=== PATIENT | female | born 1965 | race Caucasian/White ===

== ENCOUNTER 2017-03-03 17:11 | Observation (INO) ==
[2017-03-03] MEDS ORDERED: Aspirin 81 MG TAB.CHEW PO ONE (17:23)
--- NOTE | 2017-03-03 17:26 | Emergency Department Note ---
Disposition Clinical Impression: Chest pain Qualifiers: Chest pain type: unspecified Qualified Code(s): R07.9 - Chest pain, unspecified Disposition: Admitted As Inpatient Condition: Good Referrals: Lauernce Pisano CNP [Primary Care Provider] - Forms: ED Satisfaction Letter Time of Disposition: 19:48 Chest Pain HPI - General Chief Complaint: ED Chest Pain Stated Complaint: chest heaviness and epigastric burning Source: patient Limitations: no limitations - History of Present Illness HPI Narrative: Patient presents to the emergency department for evaluation of chest pressure. Symptoms started approximately 1 hour ago while she was having a discussion/ argument with her son. She states that she had pressure in the chest which radiated to the left arm and jaw with associated shortness of breath nausea vomiting diaphoresis and palpitations. She states that she no longer feels "aggravated" the symptoms have persisted. Denies recent travel or prolonged immobilization. Denies lower extremity edema or calf discomfort. She states that she does have a history of CHF, she states that she does not currently have a technical sme secondary to the fact that she missed 3 appointments. She denies migration of the pain. She denies midthoracic back pain. Severity scale (1-10): 4 - Related Data Home Medications Medication Instructions Recorded Confirmed GlipiZIDE [Glucotrol] 5 mg PO DAILY 02/18/15 03/03/17 Perphenazine [Trilafon] 8 mg PO BID 02/18/15 03/03/17 Lisinopril/Hydrochlorothiazide 12.5 each PO DAILY 03/07/15 03/03/17 [Zestoretic 10-12.5 mg Tablet] Simvastatin [Zocor] 40 mg PO HS 03/07/15 03/03/17 CarBAMazepine [Equetro] 200 mg PO BID 07/06/15 03/03/17 Fluticasone/Salmeterol [Advair 1 puff IH BID 09/22/15 03/03/17 500-50 Diskus] Albuterol Sulfate [Ventolin Hfa] 2 puff IH Q6H 10/02/15 03/03/17 Benztropine Mesylate 0.5 mg PO HS 11/16/15 03/03/17 Ipratropium/Albuterol Neb [Duoneb] 3 ml IH Q6HR PRN 11/16/15 03/03/17 carBAMazepine [Tegretol] 200 mg PO BID 12/14/15 03/03/17 ALPRAZolam [Xanax 1 MG Tablet] 5 mg PO BID 03/03/17 03/03/17 Insulin Glargine,Hum.rec.anlog 45 unit SQ HS 03/03/17 03/03/17 [Lantus Solostar] Previous Rx's Medication Instructions Recorded Dicyclomine [Bentyl] 20 mg PO QID PRN #20 capsule 12/28/15 Insulin LISPRO [Humalog Kwikpen 3 unit SQ TID #10 mls 01/28/16 U-100] Allergies Allergy/AdvReac Type Severity Reaction Status Date / Time fish oil Allergy Hives Verified 10/07/15 19:53 quetiapine [From Seroquel] Allergy Hives Verified 10/07/15 19:53 metformin AdvReac Diarrhea Verified 10/07/15 19:53 All systems ED: reviewed and negative except as stated. Review of Systems: As Per HPI Chest Pain PMH - Past Medical History Medical history: Reports: arthritis, asthma, cirrhosis, CHF, COPD, DVT, diabetes , hepatitis, hypertension, other Surgical history: Reports: , hysterectomy, other Psychiatric history: Reports: anxiety, bipolar, depression, PTSD, prior suicide attempt, schizophrenia, previous psychiatric hospitalization FURNITURE REPAIRER history: Reports: no FURNITURE REPAIRER history - Social History Smoking Status: Current every day smoker Alcohol use: Reports: none Drug use: Reports: none Physical Exam - General Limitations: no limitations General appearance: alert, in no apparent distress (Resting comfortably cooperative and interactive and pleasant) - Eye Eye exam: Present: normal appearance, PERRL, EOMI. Absent: scleral icterus - ENT ENT exam: normal exam, normal oropharynx, mucous membranes moist - Respiratory Respiratory exam: Present: normal lung sounds bilaterally - Cardiovascular Cardiovascular exam: Present: regular rate, normal rhythm, normal heart sounds - Abdominal Exam Abdominal exam: Present: soft, Non-Tender. Absent: tenderness, distention, guarding, rebound, rigidity - Extremities Exam Extremities exam: Present: normal inspection, full ROM, other (No pulse asymmetry). Absent: pedal edema, joint swelling, calf tenderness - Expanded Lower Extremity Exam Neurovascular/Tendon exam: Present: normal capillary refill. Absent: pulse deficit, motor deficit, sensory deficit - Neurological Exam Neurological exam: Present: alert, oriented X3 - Psychiatric Psychiatric exam: Present: normal affect, normal mood - Skin Skin exam: Present: warm, dry, intact, normal color Course Vital Signs Pulse Rate 99 03/03/17 17:13 Respiratory Rate 22 03/03/17 17:13 Blood Pressure 95/58 03/03/17 17:13 O2 Sat by Pulse Oximetry 93 03/03/17 17:13 Temperature 98.7 F 03/03/17 19:26 Pulse Rate 82 03/03/17 19:26 Respiratory Rate 20 03/03/17 19:26 Blood Pressure 122/83 03/03/17 19:26 O2 Sat by Pulse Oximetry 95 03/03/17 19:26 Oxygen Delivery Oxygen Delivery Nasal Cannula Chest Pain - MDM Narrative Medical decision making narrative: The 1945: Patient resting comfortably at this time without complaints. Her blood pressure 121/83. Heart rate 78. SPO2 96%. I discussed the case with Dr. Obrien, patient will be admitted for ongoing evaluation and treatment. Consideration was also given to pulmonary embolism and acute aortic pathology. Her symptoms today are not consistent with either of these etiologies therefore they were not further pursued this time. - Lab Data Lab results reviewed: Yes I reviewed the patient's lab results. Result diagrams: 03/03/17 17:27 03/03/17 17:27 Lab Results 03/03/17 03/03/17 03/03/17 Range/Units 17:27 17:27 17:27 WBC 8.7 (4.3-11.1) K/mcL RBC 4.38 (3.82-4.97) M/mcL Hgb 12.7 (11.5-15.4) g/dL Hct 38.4 (35.3-44.9) % MCV 87.7 (83.0-100.0) fL MCH 29.0 (28.0-33.3) pg MCHC 33.1 (31.6-35.5) g/dL RDW 13.8 (11.5-14.5) % Plt Count 236 (140-400) K/mcL MPV 10.1 (9.4-12.4) fL Immature Gran % 0.3 (0-4) % Seg Neutrophils % 59.8 % Lymphocytes % 31.0 % Monocytes % 5.3 % Eosinophils % 3.4 % Basophils % 0.2 % Neutrophils # 5.2 (1.6-8.9) K/mcL Lymphocytes # 2.7 (0.6-4.6) K/mcL Monocytes # 0.5 (0.0-1.3) K/mcL Eosinophils # 0.3 (0.0-0.6) K/mcL Basophils # 0.0 (0.0-0.2) K/mcL PT 11.8 (9.4-12.1) Seconds INR 1.1 APTT 32.6 (26.0-36.0) Seconds Sodium (136-145) mEq/L Potassium (3.5-4.5) mEq/L Chloride (98-109) mEq/L Carbon Dioxide (19-29) mEq/L BUN (7-20) mg/dL Creatinine (0.57-1.11) mg/dL Est GFR ( Amer) (> 60) Est GFR (Non-Af Amer) (> 60) BUN/Creatinine Ratio (6-26) Glucose (70-99) mg/dL Calculated Osmolality (280-300) Calcium (8.6-10.8) mg/dL Total Bilirubin 0.2 (0.2-1.2) mg/dL Direct Bilirubin 0.1 (0.0-0.5) mg/dL Indirect Bilirubin 0.1 (0.0-1.2) mg/dL AST 13 (5-34) Units/L ALT 18 (0-55) Units/L Alkaline Phosphatase 164 H (38-126) Units/L Troponin I (0-0.03) ng/mL Serum Total Protein 6.6 (6.0-8.3) g/dL Albumin 2.8 L (3.5-5.0) g/dL Globulin 3.8 H (2.4-3.5) g/dL Albumin/Globulin Ratio 0.7 L (1.1-2.2) Lipase 31 (8-78) Units/L 03/03/17 03/03/17 03/03/17 Range/Units 17:27 17:27 19:10 WBC (4.3-11.1) K/mcL RBC (3.82-4.97) M/mcL Hgb (11.5-15.4) g/dL Hct (35.3-44.9) % MCV (83.0-100.0) fL MCH (28.0-33.3) pg MCHC (31.6-35.5) g/dL RDW (11.5-14.5) % Plt Count (140-400) K/mcL MPV (9.4-12.4) fL Immature Gran % (0-4) % Seg Neutrophils % % Lymphocytes % % Monocytes % % Eosinophils % % Basophils % % Neutrophils # (1.6-8.9) K/mcL Lymphocytes # (0.6-4.6) K/mcL Monocytes # (0.0-1.3) K/mcL Eosinophils # (0.0-0.6) K/mcL Basophils # (0.0-0.2) K/mcL PT (9.4-12.1) Seconds INR APTT (26.0-36.0) Seconds Sodium 140 (136-145) mEq/L Potassium 3.6 (3.5-4.5) mEq/L Chloride 103 (98-109) mEq/L Carbon Dioxide 23 (19-29) mEq/L BUN 15 (7-20) mg/dL Creatinine 0.86 (0.57-1.11) mg/dL Est GFR ( Amer) > 60 (> 60) Est GFR (Non-Af Amer) > 60 (> 60) BUN/Creatinine Ratio 17 (6-26) Glucose 228 H (70-99) mg/dL Calculated Osmolality 298 (280-300) Calcium 9.0 (8.6-10.8) mg/dL Total Bilirubin (0.2-1.2) mg/dL Direct Bilirubin (0.0-0.5) mg/dL Indirect Bilirubin (0.0-1.2) mg/dL AST (5-34) Units/L ALT (0-55) Units/L Alkaline Phosphatase (38-126) Units/L Troponin I 0.00 0.00 (0-0.03) ng/mL Serum Total Protein (6.0-8.3) g/dL Albumin (3.5-5.0) g/dL Globulin (2.4-3.5) g/dL Albumin/Globulin Ratio (1.1-2.2) Lipase (8-78) Units/L ITS Impressions Chest X-Ray 03/03/17 17:23 IMPRESSION: Limited exam due to technique. No obvious airspace abnormalities. D/ / Wilfredo Escobar MD / Wilfredo Escobar MD Interpreting Provider: Wilfredo Escobar MD - Radiology Data Radiology results reviewed: Yes I reviewed the patient's radiology results. - EKG Data EKG attestation: Yes I reviewed and interpreted this EKG. EKG shows normal: sinus rhythm (Normal sinus rhythm at a rate of 94. Nonspecific ST changes anterior laterally. These ST changes are subtle and present on an EKG from 2016 though they appear to be slightly more pronounced today.)
[2017-03-03 17:37] LABS: Basophils % 0.2 %; Eosinophils # 0.3 K/mcL (0.0-0.6); Eosinophils % 3.4 %; Hematocrit 38.4 % (35.3-44.9); Hemoglobin 12.7 g/dL (11.5-15.4); Immature Granulocytes % 0.3 % (0-4); Lymphocytes # 2.7 K/mcL (0.6-4.6); Mean Corpuscular HGB Conc 33.1 g/dL (31.6-35.5); Mean Corpuscular Volume 87.7 fL (83.0-100.0); Mean Platelet Volume 10.1 fL (9.4-12.4); Monocytes # 0.5 K/mcL (0.0-1.3); Monocytes % 5.3 %; Neutrophils # 5.2 K/mcL (1.6-8.9); Platelet Count 236 K/mcL (140-400); Red Blood Count 4.38 M/mcL (3.82-4.97); Red Cell Distribution Width 13.8 % (11.5-14.5); Segmented Neutrophils % 59.8 %
[2017-03-03 17:44] LABS: INR 1.1; Prothrombin Time 11.8 Seconds (9.4-12.1)
[2017-03-03 17:47] LABS: Activated Partial Thrombo Time 32.6 Seconds (26.0-36.0)
[2017-03-03 17:53] LABS: BUN/Creatinine Ratio 17 (6-26); Blood Urea Nitrogen 15 mg/dL (7-20); Carbon Dioxide 23 mEq/L (19-29); Chloride 103 mEq/L (98-109); Glucose 228 mg/dL (70-99); Osmolality,Calculated 298 (280-300); Potassium 3.6 mEq/L (3.5-4.5); Sodium 140 mEq/L (136-145); eGFR For African Americans > 60 (> 60); eGFR For Non-African Americans > 60 (> 60)
[2017-03-03 17:54] LABS: Albumin 2.8 g/dL (3.5-5.0); Albumin/Globulin Ratio 0.7 (1.1-2.2); Bilirubin,Direct 0.1 mg/dL (0.0-0.5); Bilirubin,Indirect 0.1 mg/dL (0.0-1.2); Bilirubin,Total 0.2 mg/dL (0.2-1.2); Globulin 3.8 g/dL (2.4-3.5); Total Protein 6.6 g/dL (6.0-8.3)
[2017-03-03] MEDS ORDERED: Naloxone 0.4 MG/ML INJ IVP PRN (19:49)
[2017-03-03] MEDS ORDERED: Insulin DETEMIR 100 UNIT/ML per UNIT SQ SCH (21:00)
[2017-03-03] MEDS: Perphenazine 2 MG TABLET PO SCH (22:12)
[2017-03-03] MEDS: carBAMazepine 200 MG TABLET PO SCH (22:13)
[2017-03-03] MEDS ORDERED: Insulin DETEMIR 100 UNIT/ML per UNIT SQ ONE (22:49)
[2017-03-03] MEDS: ALPRAZolam 0.5 MG TABLET PO PRN (23:06)
[2017-03-04] MEDS ORDERED: Ibuprofen 600 MG TABLET PO ONE (04:19)
[2017-03-04 07:29] LABS: Basophils % 0.7 %; Eosinophils # 0.3 K/mcL (0.0-0.6); Eosinophils % 4.8 %; Hematocrit 37.1 % (35.3-44.9); Hemoglobin 11.9 g/dL (11.5-15.4); Immature Granulocytes % 0.3 % (0-4); Lymphocytes # 1.9 K/mcL (0.6-4.6); Lymphocytes % 31.6 %; Mean Corpuscular HGB Conc 32.1 g/dL (31.6-35.5); Mean Corpuscular Hemoglobin 28.5 pg (28.0-33.3); Mean Corpuscular Volume 88.8 fL (83.0-100.0); Mean Platelet Volume 10.1 fL (9.4-12.4); Monocytes # 0.4 K/mcL (0.0-1.3); Monocytes % 6.3 %; Neutrophils # 3.4 K/mcL (1.6-8.9); Platelet Count 192 K/mcL (140-400); Red Blood Count 4.18 M/mcL (3.82-4.97); Red Cell Distribution Width 13.9 % (11.5-14.5); Segmented Neutrophils % 56.3 %
[2017-03-04] MEDS ORDERED: *HR* GlipiZIDE 5 MG TABLET PO SCH (08:00)
[2017-03-04] MEDS: Insulin LISPRO 300 UNITS/3 ML VIAL SQ SCH ×2 (08:45→12:06)
[2017-03-04] MEDS: ALPRAZolam 0.5 MG TABLET PO PRN (08:47)
[2017-03-04] MEDS: carBAMazepine 200 MG TABLET PO SCH (08:48)
[2017-03-04] MEDS: Perphenazine 2 MG TABLET PO SCH (08:49)
[2017-03-04 09:36] LABS: BUN/Creatinine Ratio 22 (6-26); Blood Urea Nitrogen 17 mg/dL (7-20); Carbon Dioxide 28 mEq/L (19-29); Chloride 101 mEq/L (98-109); Chol/HDL Ratio 4.1 (0-4.9); Cholesterol 151 mg/dL (< 200); Glucose 308 mg/dL (70-99); HDL Cholesterol 37 mg/dL (40-59); LDL Cholesterol,Calculated 64 mg/dL (0-99); Magnesium 1.7 mg/dL (1.6-2.6); Osmolality,Calculated 301 (280-300); Phosphorous 4.1 mg/dL (2.3-4.7); Potassium 3.8 mEq/L (3.5-4.5); Sodium 139 mEq/L (136-145); Triglycerides 249 mg/dL (< 150); eGFR For African Americans > 60 (> 60); eGFR For Non-African Americans > 60 (> 60)
[2017-03-04 10:22] VITALS: BP 101/68
--- NOTE | 2017-03-04 11:18 | Internal Med History&Physical ---
Date of Encounter: 03/04/17 Time of Encounter: 10:45 Assessment and Plan (1) Chest pain Current visit: Yes Status: Acute Repeat cardiac enzymes were ordered through emergency room. Qualifiers: Chest pain type: unspecified Qualified Code(s): R07.9 - Chest pain, unspecified Internal Medicine - H&P: HPI Chief complaint: Chest pressure Admitted From: Home Plans for Post Hospital Care: Home History of present illness: Ms. Wood is a 52 year old female came to the emergency room stating she did develop pressure in her chest after having a disagreement with her son. It did not resolve she came to the emergency room. She was evaluated and admitted to [facility] for ongoing care needs. She states she does not get similar discomfort on walking. Her cardiovascular history is significant for hypertension but she denies MO or heart failure. She claims showed a heart catheterization approximately 2011 which was unremarkable and did not require further intervention. She denies DVT or pulmonary embolus. She states she is pain-free at this time and feels stable for discharge home. Past Med Surg Social Fam HX - Past Medical History Medical history: arthritis, asthma, cirrhosis, CHF, COPD, DVT, diabetes, hepatitis, hypertension, other Psychiatric history: anxiety, bipolar, depression, PTSD, prior suicide attempt, schizophrenia, previous psychiatric hospitalization - Past Surgical History Surgical History: , hysterectomy, other - Social History Smoking Status: Current every day smoker Packs per day: 3 Smokeless Tobacco Status: No Alcohol use: none Drug use: none Internal Medicine - H&P: Meds GlipiZIDE [Glucotrol] 5 mg PO DAILY 02/18/15 [History] Perphenazine [Trilafon] 8 mg PO BID 02/18/15 [History] Lisinopril/Hydrochlorothiazide [Zestoretic 10-12.5 mg Tablet] 12.5 each PO DAILY 03/07/15 [History] Simvastatin [Zocor] 40 mg PO HS 03/07/15 [History] CarBAMazepine [Equetro] 200 mg PO BID 07/06/15 [History] Fluticasone/Salmeterol [Advair 500-50 Diskus] 1 puff IH BID 09/22/15 [History] Albuterol Sulfate [Ventolin Hfa] 2 puff IH Q6H 10/02/15 [History] Benztropine Mesylate 0.5 mg PO HS 11/16/15 [History] Ipratropium/Albuterol Neb [Duoneb] 3 ml IH Q6HR PRN 11/16/15 [History] carBAMazepine [Tegretol] 200 mg PO BID 12/14/15 [History] Dicyclomine [Bentyl] 20 mg PO QID PRN #20 capsule 12/28/15 [Rx] Insulin LISPRO [Humalog Kwikpen U-100] 3 unit SQ TID #10 mls 01/28/16 [Rx] ALPRAZolam [Xanax 1 MG Tablet] 5 mg PO BID 03/03/17 [History] Insulin Glargine,Hum.rec.anlog [Lantus Solostar] 45 unit SQ HS 03/03/17 [History ] 3 Allergy/AdvReac Type Severity Reaction Status Date / Time fish oil Allergy Hives Verified 10/07/15 19:53 quetiapine [From Seroquel] Allergy Hives Verified 10/07/15 19:53 metformin AdvReac Diarrhea Verified 10/07/15 19:53 All Systems PM: A 10-system review of systems was performed and is negative for pertinent findings except as documented above in the HPI. Review of systems: Gen.: Her weight has increased from 138.091 kg on 03/03/2015 to 146.964 kg on admission now. Cardiovascular: As per history of present illness Respiratory: She has smoked since age 11 a total of 32 years. She smoked up to 4 packs per day at times. She has not had PFTs but does have home oxygen which she uses occasionally. She has been diagnosed with VIOLET and was prescribed CPAP. She reports her machine is broken at present time. GI: She has been diagnosed with hepatitis B and hepatitis C. She has cirrhosis secondary to hepatitis. She denies disorders of her exocrine pancreas or gallbladder : She denies hematuria dysuria or kidney stones Neurologic: She denies large distribution strokes or seizures. Endocrine: She was diagnosed with DM 2 approximately 1999. She has hyperlipidemia but no known thyroid disease Hematology/oncology: She denies blood disorders cancers or anemia Psychiatric: She has anxiety, schizoaffective disorder, bipolar disorder, MRDD ( mild), and PTSD Musk skeletal: She has DJD but no known gout or osteoporosis - Constitutional Vitals: Temp Pulse Resp BP Pulse Ox 97.7 F 77 18 101/68 95 03/04/17 10:18 03/04/17 10:18 03/04/17 10:18 03/04/17 10:18 03/04/17 10:18 Exam: Gen.: She is a well-developed obese female who appears in no acute distress at present time HEENT: Head is atraumatic and normocephalic. Eyes: EOMI. There is no scleral icterus. Mouth: Mucosa is moist. Neck: Supple and nontender. There is no thyromegaly or adenopathy noted. Heart: Regular without murmurs gallops or ectopics Lungs: No wheezes or crackles are heard. Chest: She is tender in her costosternal joints to compression but states "that is not the pain". Abdomen: Soft and nontender. Exam is limited because she is in the seated position. Extremities: There is no cyanosis edema or clubbing noted. Dorsalis pedis and posterior tibial pulses are trace to 1+ palpable bilaterally. Her feet are warm to touch. Neurologic: Mental status: She is talkative and a good historian. Cranial nerves: Smile is symmetric. Forehead wrinkles bilaterally. Tongue protrudes midline. EOMI. Motor: There is no pronator drift. Cerebellar: Finger to nose is intact bilaterally. Skin: Warm and dry Internal Med - H&P Results - Labs CBC & Chem 7: 03/04/17 07:20 03/04/17 07:20 Labs: Short CBC 03/04/17 Range/Units 07:20 WBC 6.1 (4.3-11.1) K/mcL Hgb 11.9 (11.5-15.4) g/dL Hct 37.1 (35.3-44.9) % Plt Count 192 (140-400) K/mcL Neutrophils # 3.4 (1.6-8.9) K/mcL BMP 03/04/17 07:20 Sodium 139 Potassium 3.8 Chloride 101 Carbon Dioxide 28 BUN 17 Creatinine 0.79 Glucose 308 H Calcium 9.0 Cardiac Enzymes 03/04/17 03/04/17 Range/Units 01:30 07:20 Troponin I 0.00 0.00 (0-0.03) ng/mL
--- NOTE | 2017-03-04 11:30 | Discharge Summary ---
Date of Encounter: 03/04/17 Time of Encounter: 10:45 - Discharge Diagnosis (1) Chest pain Priority: Primary Status: Resolved Qualifiers: Chest pain type: unspecified Qualified Code(s): R07.9 - Chest pain, unspecified - Discharge Medications Home Medications: GlipiZIDE [Glucotrol] 5 mg PO DAILY 02/18/15 [History] Perphenazine [Trilafon] 8 mg PO BID 02/18/15 [History] Lisinopril/Hydrochlorothiazide [Zestoretic 10-12.5 mg Tablet] 12.5 each PO DAILY 03/07/15 [History] Simvastatin [Zocor] 40 mg PO HS 03/07/15 [History] CarBAMazepine [Equetro] 200 mg PO BID 07/06/15 [History] Fluticasone/Salmeterol [Advair 500-50 Diskus] 1 puff IH BID 09/22/15 [History] Albuterol Sulfate [Ventolin Hfa] 2 puff IH Q6H 10/02/15 [History] Benztropine Mesylate 0.5 mg PO HS 11/16/15 [History] Ipratropium/Albuterol Neb [Duoneb] 3 ml IH Q6HR PRN 11/16/15 [History] carBAMazepine [Tegretol] 200 mg PO BID 12/14/15 [History] Dicyclomine [Bentyl] 20 mg PO QID PRN #20 capsule 12/28/15 [Rx] Insulin LISPRO [Humalog Kwikpen U-100] 3 unit SQ TID #10 mls 01/28/16 [Rx] ALPRAZolam [Xanax 1 MG Tablet] 5 mg PO BID 03/03/17 [History] Insulin Glargine,Hum.rec.anlog [Lantus Solostar] 45 unit SQ HS 03/03/17 [History ] Allergies/Adverse Reactions: 3 Allergy/AdvReac Type Severity Reaction Status Date / Time fish oil Allergy Hives Verified 10/07/15 19:53 quetiapine [From Seroquel] Allergy Hives Verified 10/07/15 19:53 metformin AdvReac Diarrhea Verified 10/07/15 19:53 Date of admission: 03/03/17 20:20 Primary care physician: Laurence Pisano CNP - Patient Status Disposition: Home, Self-Care Condition: Good Functional capacity at discharge: independent ambulation Overall status at discharge: patient is progressing back to baseline - Discharge Instructions Follow Up With: Laurence Pisano CNP [Primary Care Provider] - 1 week - Diet and Activity Activity: resume usual activities as tolerated, wear oxygen at night Diet: diabetic diet Hospital course: Ms. Wood is a 52 year old female who came to the emergency room stating she did develop pressure in her chest after having a disagreement with her son. It did not resolve she came to the emergency room. She was evaluated and admitted to [facility] for ongoing care needs. Initial orders were written by the emergency room physician. I saw her on March 04 and performed a history physical and discharge. Repeat cardiac enzymes showed no evidence of myocardial damage. When I saw her she was pain- free and wished to be discharged home which I felt was reasonable. The etiology of the pain was not determined with certainty. It possibly could be due to coronary spasm from stress. She will be given a prescription for Nitrostat for prn use. Her other medications will remain unchanged. She will follow with her PCP within one week. I encouraged her to discontinue smoking and have her PCP coordinate repair of her BiPAP machine so she can use it as prescribed. - Time Spent with Patient Total time spent providing and/or coordinating discharge services: - Constitutional Vitals: Temp Pulse Resp BP Pulse Ox 97.7 F 77 18 101/68 95 03/04/17 10:18 03/04/17 10:18 03/04/17 10:18 03/04/17 10:18 03/04/17 10:18
[2017-03-04] MEDS ORDERED: Insulin DETEMIR 100 UNIT/ML per UNIT SQ SCH (21:00)
--- NOTE | 2017-03-05 08:48 | Electrocardiograph Report ---
[address] [address] Test Date: 2017-03-03 Pat Name: John Wood Department: [id number] Room: [facility] Gender: F Analytical Lab Analyst: Grayson : 1965 Requested By: Sanjeev Rees Order Number: [id number] Reading MD: Mary Flanagan Measurements Intervals [place] Rate: 94 P: 61 CT: 152 QRS: 75 QRSD: 88 T: 53 QT: 349 QTc: 401 Interpretive Statements SINUS RHYTHM POSSIBLE RIGHT VENTRICULAR CONDUCTION DELAY NONSPECIFIC ST & T-WAVE ABNORMALITY Electronically Signed On 03-04-2017 17:39:51 EDT by Mary Flanagan
== END 2017-03-04 12:20 | disposition home or self-care (01) ==
LOC: INPPIK 17:11 → EMEROOPIK 17:11 → INPPIK 20:34
PROVIDERS: ADMIT Emergency Medicine; ATTEND Internal Medicine

== ENCOUNTER 2018-07-06 22:33 | Observation (INO) ==
[2018-07-06] MEDS ORDERED: Ipratropium/Albuterol Neb 3 ML IH ONE (23:03)
[2018-07-06] MEDS ORDERED: methylPREDNISolone 125 MG/2 ML VIAL IVP ONE (23:03)
[2018-07-06 23:34] LABS: Basophils % 0.4 %; Eosinophils # 0.3 K/mcL (0.0-0.6); Eosinophils % 4.4 %; Hematocrit 35.3 % (35.3-44.9); Immature Granulocytes % 0.4 % (0-4); Lymphocytes # 1.4 K/mcL (0.6-4.6); Lymphocytes % 20.4 %; Mean Corpuscular HGB Conc 31.2 g/dL (31.6-35.5); Mean Corpuscular Hemoglobin 25.5 pg (28.0-33.3); Mean Corpuscular Volume 81.9 fL (83.0-100.0); Mean Platelet Volume 9.3 fL (9.4-12.4); Monocytes # 0.4 K/mcL (0.0-1.3); Monocytes % 6.1 %; Neutrophils # 4.8 K/mcL (1.6-8.9); Platelet Count 182 K/mcL (140-400); Red Blood Count 4.31 M/mcL (3.82-4.97); Red Cell Distribution Width 14.3 % (11.5-14.5); Segmented Neutrophils % 68.3 %
--- NOTE | 2018-07-06 23:41 | Emergency Department Note ---
Disposition Clinical Impression: Acute exacerbation of chronic obstructive airways disease, Bronchitis, Hypoxia Disposition: Admitted As Inpatient Condition: Fair Referrals: Bruce Mi CNP [Primary Care Provider] - Forms: ED Satisfaction Letter Time of Disposition: 01:27 SOB HPI - General Chief Complaint: ED Shortness of Breath/Dyspnea Stated Complaint: short of breath Time Seen by Provider: 07/06/18 22:40 Source: patient Mode of arrival: private vehicle Limitations: no limitations Nursing Notes Reviewed: Yes Vital Signs Reviewed: Yes - History of Present Illness Pt Subjective Complaint: shortness of breath Onset (ago): day(s) Context: other (Had an upper respiratory infection about 2 weeks ago.) Severity: moderate Consistency/Duration: constant Improves with: rest Worsens with: exertion Known history of: COPD Associated symptoms: Reports: cough, sputum production. Denies: chest pain, fever Treatment prior to arrival: other (She used her home aerosol) Cough present: Yes Cough Description: Productive Cough Frequency: Intermittent - Related Data Home Medications Medication Instructions Recorded Confirmed Perphenazine [Trilafon] 8 mg PO DAILY 02/18/15 07/06/18 Alprazolam [Xanax] 2 mg PO TID PRN 04/05/17 07/06/18 Insulin ASPART [NovoLOG] 20 unit SQ TIDWM 04/05/17 07/06/18 carBAMazepine [Carbamazepine ER] 200 mg PO TID 04/05/17 07/06/18 Furosemide [Lasix] 40 mg PO DAILY 11/29/17 07/06/18 Simvastatin [Zocor] 40 mg PO HS 11/29/17 07/06/18 glyBURIDE [GlyBURIDE] 5 mg PO QAM 11/29/17 07/06/18 hydrOXYzine pamoate [HydrOXYzine 200 mg PO HS PRN 11/29/17 07/06/18 Pamoate] Benztropine Mesylate 2 mg PO BID 02/13/18 07/06/18 Ipratropium/Albuterol Sulfate 3 ml PO QID 02/13/18 07/06/18 Lantus 70 units SQ BID 02/13/18 07/06/18 Losartan Potassium 1 tab PO DAILY 02/13/18 07/06/18 OXcarbazepine 600 mg PO BID 02/13/18 07/06/18 Omeprazole 20 mg PO DAILY 02/13/18 07/06/18 Vitamin E 400 unit PO DAILY 02/13/18 07/06/18 Oxygen 3 l IH HS 07/06/18 07/06/18 Allergies Allergy/AdvReac Type Severity Reaction Status Date / Time codeine Allergy See Verified 07/06/18 22:48 Comments fish oil Allergy Hives Verified 07/06/18 22:48 quetiapine [From Seroquel] Allergy Hives Verified 07/06/18 22:48 metformin AdvReac Diarrhea Verified 07/06/18 22:48 All systems ED: reviewed and negative except as stated. Constitutional: Denies: fever, chills Eyes: Denies: eye pain, vision change ENT ED: Denies: ear pain, throat pain, congestion Cardiovascular: Reports: dyspnea on exertion. Denies: chest pain, palpitations Respiratory: Reports: cough, dyspnea, wheezes Gastrointestinal: Denies: abdominal pain, nausea, vomiting Musculoskeletal: Reports: back pain, neck pain Integumentary: Reports: rash Past Medical History - Past Medical History Attestation: Yes The following information was validated with the patient. Source: patient, old records reviewed, obtained from family, nursing notes reviewed Medical history: Reports: asthma, CHF, COPD, diabetes, GERD, hepatitis, hyperlipidemia, hypertension, pulmonary embolus, TIA, other Surgical history: Reports: , cholecystectomy, hysterectomy, orthopedic, other, other Psychiatric history: Reports: anxiety, bipolar, depression, PTSD, prior suicide attempt, schizophrenia, previous psychiatric hospitalization RIVETER HELPER history: Reports: no RIVETER HELPER history - Social History Smoking Status: Current every day smoker Smokeless Tobacco Status: No Alcohol use: Reports: none Drug use: Reports: none Physical Exam - General Limitations: no limitations General appearance: alert, obese, other (Cough and tachypnea with some wheezing.) - Head Head exam: atraumatic, normocephalic, normal inspection - Eye Eye exam: Present: normal appearance, PERRL, EOMI. Absent: scleral icterus, conjunctival injection - ENT ENT exam: normal exam, normal oropharynx, mucous membranes moist, normal external ear exam - Neck Neck exam: Present: normal inspection, full ROM, trachea midline. Absent: meningismus - Chest Chest inspection: Present: normal inspection, symmetric chest wall rise. Absent: tenderness - Respiratory Respiratory exam: Present: respiratory distress (Tachypnea), wheezes (Scattered throughout on bilateral lungs) - Cardiovascular Cardiovascular exam: Present: regular rate, normal rhythm, normal heart sounds - Abdominal Exam Abdominal exam: Present: soft, Non-Tender, normal bowel sounds - Extremities Exam Extremities exam: Present: normal inspection. Absent: pedal edema - Neurological Exam Neurological exam: Present: alert, oriented X3 - Psychiatric Psychiatric exam: Present: normal affect, normal mood - Skin Skin exam: Present: warm, dry. Absent: rash Course Course Narrative: Patient presents for shortness of breath and cough is worsening over the past couple days. On exam she is tachypneic and there is some coarse wheezing. I do not hear rales and I do not see peripheral edema. We will check an x-ray and lab workup going. Duo nebs and steroids have been ordered. Disposition will be based on diagnostic results and reevaluation. - Reevaluation(s) Reevaluation #1: Chest x-ray is clear. Lab work is unremarkable except for the ABG which shows some hypoxia and that is after breathing treatments and on oxygen. CO2 and pH are okay. Patient needs to be admitted to the hospital for COPD exacerbation. I have already discussed the case with the hospitalist who is accepted her for admission. Time: 01:25 - Consultations Consultation #1: Dr. Obrien, hospitalist - I discussed case with the hospitalist. He is accepted the patient for admission. Time: 01:26 Vital Signs Temperature 97.4 F L 07/06/18 22:35 Pulse Rate 93 07/06/18 22:35 Respiratory Rate 25 07/06/18 22:35 Blood Pressure 141/94 07/06/18 22:35 O2 Sat by Pulse Oximetry 84 07/06/18 22:35 Temperature 97.4 F L 07/06/18 22:35 Pulse Rate 82 07/07/18 01:16 Respiratory Rate 22 07/07/18 01:16 Blood Pressure 113/66 07/07/18 01:16 O2 Sat by Pulse Oximetry 91 07/07/18 01:16 Oxygen Delivery Oxygen Delivery Nasal Cannula Shortness of Breath/Dyspnea - Medical Records Medical records reviewed: Yes I reviewed the patient's medical records. - Lab Data Lab results reviewed: Yes I reviewed the patient's lab results. Result diagrams: 07/06/18 23:24 07/06/18 23:24 Lab Results 07/06/18 07/06/18 07/06/18 Range/Units 23:24 23:24 23:24 WBC 7.1 (4.3-11.1) K/mcL RBC 4.31 (3.82-4.97) M/mcL Hgb 11.0 L (11.5-15.4) g/dL Hct 35.3 (35.3-44.9) % MCV 81.9 L (83.0-100.0) fL MCH 25.5 L (28.0-33.3) pg MCHC 31.2 L (31.6-35.5) g/dL RDW 14.3 (11.5-14.5) % Plt Count 182 (140-400) K/mcL MPV 9.3 L (9.4-12.4) fL Immature Gran % 0.4 (0-4) % Seg Neutrophils % 68.3 % Lymphocytes % 20.4 % Monocytes % 6.1 % Eosinophils % 4.4 % Basophils % 0.4 % Neutrophils # 4.8 (1.6-8.9) K/mcL Lymphocytes # 1.4 (0.6-4.6) K/mcL Monocytes # 0.4 (0.0-1.3) K/mcL Eosinophils # 0.3 (0.0-0.6) K/mcL Basophils # 0.0 (0.0-0.2) K/mcL Sample Site ABG pH (7.32-7.45) pH Units ABG pCO2 (35-45) mmHg ABG pO2 (85-104) mmHg ABG HCO3 (21-27) mEq/L ABG Total CO2 (20-26) mEq/L ABG O2 Saturation (95-98) % ABG Base Excess (-2 to 3) mEq/L Jose Test O2 Delivery Device Inspired O2 (1-15=lpm [id number]=%) Sodium 143 (136-145) mEq/L Potassium 3.4 L (3.5-5.1) mEq/L Chloride 105 (98-107) mEq/L Carbon Dioxide 31 H (23-29) mEq/L BUN 15 (6-20) mg/dL Creatinine 0.83 (0.60-1.20) mg/dL Est GFR ( Amer) > 60 (> 60) Est GFR (Non-Af Amer) > 60 (> 60) BUN/Creatinine Ratio 18 (6-26) Glucose 297 H (70-105) mg/dL Calculated Osmolality 308 H (280-300) Calcium 8.4 L (8.6-10.3) mg/dL Troponin I < 0.03 (< 0.04) ng/mL B-Natriuretic Peptide 105 H (Less than 100) pg/mL Ethyl Alcohol < 10 (Less than 10) mg/dL 07/07/18 Range/Units 00:50 WBC (4.3-11.1) K/mcL RBC (3.82-4.97) M/mcL Hgb (11.5-15.4) g/dL Hct (35.3-44.9) % MCV (83.0-100.0) fL MCH (28.0-33.3) pg MCHC (31.6-35.5) g/dL RDW (11.5-14.5) % Plt Count (140-400) K/mcL MPV (9.4-12.4) fL Immature Gran % (0-4) % Seg Neutrophils % % Lymphocytes % % Monocytes % % Eosinophils % % Basophils % % Neutrophils # (1.6-8.9) K/mcL Lymphocytes # (0.6-4.6) K/mcL Monocytes # (0.0-1.3) K/mcL Eosinophils # (0.0-0.6) K/mcL Basophils # (0.0-0.2) K/mcL Sample Site L Radial ABG pH 7.36 (7.32-7.45) pH Units ABG pCO2 57 H (35-45) mmHg ABG pO2 68 L (85-104) mmHg ABG HCO3 33 H (21-27) mEq/L ABG Total CO2 34 H (20-26) mEq/L ABG O2 Saturation 92 L (95-98) % ABG Base Excess 6 H (-2 to 3) mEq/L Jose Test Positive O2 Delivery Device Cannula Inspired O2 4.0 (1-15=lpm [id number]=%) Sodium (136-145) mEq/L Potassium (3.5-5.1) mEq/L Chloride (98-107) mEq/L Carbon Dioxide (23-29) mEq/L BUN (6-20) mg/dL Creatinine (0.60-1.20) mg/dL Est GFR ( Amer) (> 60) Est GFR (Non-Af Amer) (> 60) BUN/Creatinine Ratio (6-26) Glucose (70-105) mg/dL Calculated Osmolality (280-300) Calcium (8.6-10.3) mg/dL Troponin I (< 0.04) ng/mL B-Natriuretic Peptide (Less than 100) pg/mL Ethyl Alcohol (Less than 10) mg/dL - Radiology Data Radiology results reviewed: Yes I reviewed the patient's radiology results. - EKG Data EKG attestation: Yes I reviewed and interpreted this EKG. EKG results narrative: Twelve-lead EKG performed at 20 3:15 PM. Ordered, reviewed and interpreted by ED physician shows sinus rhythm at a rate of 84. Normal axis. Good hour progression across precordium. Nonspecific T-wave abnormalities but no obvious acute ischemic changes. Intervals within normal limits.
[2018-07-06 23:53] LABS: BUN/Creatinine Ratio 18 (6-26); Blood Urea Nitrogen 15 mg/dL (6-20); Calcium 8.4 mg/dL (8.6-10.3); Carbon Dioxide 31 mEq/L (23-29); Chloride 105 mEq/L (98-107); Ethanol < 10 mg/dL (Less than 10); Glucose 297 mg/dL (70-105); Osmolality,Calculated 308 (280-300); Potassium 3.4 mEq/L (3.5-5.1); Sodium 143 mEq/L (136-145); eGFR For Non-African Americans > 60 (> 60)
[2018-07-06 23:54] LABS: Troponin I < 0.03 ng/mL (< 0.04)
[2018-07-07 00:54] LABS: ABG Base Excess 6 mEq/L (-2 to 3); ABG HCO3 33 mEq/L (21-27); ABG Oxygen Saturation 92 % (95-98); ABG PCO2 57 mmHg (35-45); ABG PH 7.36 pH Units (7.32-7.45); ABG PO2 68 mmHg (85-104); ABG TCO2 34 mEq/L (20-26)
[2018-07-07] MEDS ORDERED: Azithromycin 500 MG in D5% in Water 250 ML IVPB ONE ×2 (01:29→02:14)
[2018-07-07] MEDS ORDERED: 0.9 % Sodium Chloride 1,000 ML IVC SCH (02:14)
[2018-07-07] MEDS ORDERED: SODIUM CHLORIDE MINI 0.9% IVPB SCH (02:14)
[2018-07-07] MEDS ORDERED: Naloxone 0.4 MG/ML INJ IVP PRN (02:14)
[2018-07-07] MEDS ORDERED: MethylPREDNISolone 40 MG/ML VIAL IVP ONE (02:14)
[2018-07-07] MEDS ORDERED: CEFTRIAXONE IVPB SCH (02:14)
[2018-07-07] MEDS: Ipratropium/Albuterol Neb 3 ML IH SCH ×3 (03:50→11:49)
[2018-07-07] MEDS ORDERED: methylPREDNISolone 125 MG/2 ML VIAL IVP SCH (08:00)
[2018-07-07] MEDS: Insulin LISPRO 300 UNITS/3 ML VIAL SQ SCH ×2 (08:30→11:27)
[2018-07-07] MEDS ORDERED: Insulin DETEMIR 100 UNIT/ML X5UNITS SQ SCH (09:00)
[2018-07-07] MEDS ORDERED: carBAMazepine 200 MG TABLET PO SCH (09:00)
[2018-07-07] MEDS ORDERED: INSULIN GLARGINE SQ SCH (09:00)
[2018-07-07] MEDS ORDERED: Losartan/HCTZ 50-12.5 TABLET PO SCH (09:00)
[2018-07-07] MEDS ORDERED: *HR* GlyBURIDE 5 MG TABLET PO SCH (09:00)
[2018-07-07 11:25] VITALS: BP 126/82
--- NOTE | 2018-07-07 12:15 | Internal Med History&Physical ---
Date of Encounter: 07/07/18 Time of Encounter: 11:45 Assessment and Plan (1) COPD (chronic obstructive pulmonary disease) Current visit: No Status: Chronic She was given Rocephin and Zithromax with Solu-Medrol in emergency room. She states her breathing has significantly improved and she wishes to be discharged home. Qualifiers: COPD type: COPD with acute exacerbation Qualified Code(s): J44.1 - Chronic obstructive pulmonary disease with (acute) exacerbation (2) HTN (hypertension) Current visit: No Status: Chronic Continue Hyzaar Qualifiers: Hypertension type: essential hypertension Qualified Code(s): I10 - Essential (primary) hypertension (3) Hypokalemia Current visit: Yes Status: Acute Likely secondary to Hyzaar and Lasix use. Supplemental potassium will be ordered. Internal Medicine - H&P: HPI Chief complaint: Dyspnea Admitted From: Emergency Dept Plans for Post Hospital Care: Home History of present illness: Ms. Wood is a 53 year old female who came to emergency room stating she had increased dyspnea after lying down in bed last night. She reports she has had a cough for approximately 2 weeks that has not significantly improved. It is generally nonproductive. When her dyspnea did not improve she decided to come to emergency room. She was evaluated and was felt to have exacerbation of COPD. She was admitted to [facility] floor for ongoing care needs. She has smoked since age 11 a total of 33 years. She has smoked up to 4 packs per day. She has not had PFTs but does have home oxygen which she uses occasionally when she feels dyspneic. She has been diagnosed with VIOLET and was prescribed CPAP. She discarded her machine after it malfunctioned and she reports the supplier would not repair it. Past Med Surg Social Fam HX - Past Medical History Medical history: asthma, CHF, COPD, diabetes, GERD, hepatitis, hyperlipidemia, hypertension, pulmonary embolus, TIA, other Additional medical history: Hx of gall stones. SLEEP APNEA. hep c. hep b. GASTRIC ULCER. DVT. GLAUCOMA. HOME O2. DYSPHAGIA Psychiatric history: anxiety, bipolar, depression, PTSD, prior suicide attempt, schizophrenia, previous psychiatric hospitalization - Past Surgical History Surgical History: , cholecystectomy, hysterectomy, orthopedic, other, other Additional surgical history: right foot surgery. partial hysterectomy - Social History Smoking Status: Current every day smoker Packs per day: 2 Smokeless Tobacco Status: No Alcohol use: none Drug use: none - Family History Mother Family Member Ethnicity: Non- Living Status: Hx Family Cardiac Disorders: Yes ([place] x4, CAD) Father Family Member Ethnicity: Non- Living Status: Hx Family Cardiac Disorders: Yes Brother Family Member Ethnicity: Non- Living Status: Hx Family Cardiac Disorders: Yes Hx Family Cancer: Yes (Stomach, Prostate) Hx Family Neurologic Disorders: Yes (Seizures) Sister Family Member Ethnicity: Non- Living Status: Still Living Hx Family Cardiac Disorders: Yes (CAD) Hx Family Cancer: Yes (Uterine) Hx Family GI Disorders: Yes (Polyps in colon) Hx Family Endocrine Disorder: Yes (DM) Internal Medicine - H&P: Meds Perphenazine [Trilafon] 8 mg PO DAILY 02/18/15 [History] Alprazolam [Xanax] 2 mg PO TID PRN 04/05/17 [History] Insulin ASPART [NovoLOG] 20 unit SQ TIDWM 04/05/17 [History] carBAMazepine [Carbamazepine ER] 200 mg PO TID 04/05/17 [History] Furosemide [Lasix] 40 mg PO DAILY 11/29/17 [History] Simvastatin [Zocor] 40 mg PO HS 11/29/17 [History] glyBURIDE [GlyBURIDE] 5 mg PO QAM 11/29/17 [History] hydrOXYzine pamoate [HydrOXYzine Pamoate] 200 mg PO HS PRN 11/29/17 [History] Benztropine Mesylate 2 mg PO BID 02/13/18 [History] Ipratropium/Albuterol Sulfate 3 ml PO QID 02/13/18 [History] Lantus 70 units SQ BID 02/13/18 [History] OXcarbazepine 600 mg PO BID 02/13/18 [History] Omeprazole 20 mg PO DAILY 02/13/18 [History] Vitamin E 400 unit PO DAILY 02/13/18 [History] Oxygen 3 l IH HS 07/06/18 [History] Losartan/HCTZ [Hyzaar 50-12.5 Tablet] 1 each PO DAILY 07/07/18 [History] Allergy/AdvReac Type Severity Reaction Status Date / Time codeine Allergy See Verified 07/06/18 22:48 Comments fish oil Allergy Hives Verified 07/06/18 22:48 quetiapine [From Seroquel] Allergy Hives Verified 07/06/18 22:48 metformin AdvReac Diarrhea Verified 07/06/18 22:48 All Systems PM: A 10-system review of systems was performed and is negative for pertinent findings except as documented above in the HPI. Review of systems: Review of systems from her February 2017 [facility] hospitalization were reviewed and revised as below. Gen.: Her weight has increased from 138.091 kg on 03/03/2015 to 145.15 kg on admission now. Cardiovascular: She has hypertension. She denies MN DVT or pulmonary embolus She claims a heart cath done May 2018 at [facility] was unremarkable and did not require further intervention. Echocardiogram 11/29/2017 showed LVEF of 60%. There was no significant valvular dysfunction. The interventricular septum and posterior wall thickness measurements were 1.09 and 1.00 cm respectively. E/A ratio was 1.1. Respiratory: As per history of present illness GI: She has been diagnosed with hepatitis B and hepatitis C. She reports receiving pegylated interferon for hep C approximately 2002. She has cirrhosis secondary to hepatitis. She denies disorders of her exocrine pancreas. She has had cholecystectomy. : She denies hematuria dysuria or kidney stones Neurologic: She denies large distribution strokes or seizures. She thinks she may have had a "small stroke" a few months ago when she fell out of bed and injured her right shoulder. Endocrine: She was diagnosed with DM 2 approximately 1999. She has hyperlipidemia but no known thyroid disease Hematology/oncology: She denies blood disorders cancers or anemia Psychiatric: She has anxiety, schizoaffective disorder, bipolar disorder, MRDD (mild), and PTSD Musk skeletal: She has DJD but no known gout or osteoporosis. She reports right rotator cuff surgery was done February 2018. - Constitutional Vitals: Temp Pulse Resp BP Pulse Ox 97.6 F 97 18 126/82 93 07/07/18 11:20 07/07/18 11:20 07/07/18 11:20 07/07/18 11:20 07/07/18 11:20 Exam: Gen.: She is a well-developed morbidly obese female sitting in bed who appears in minimal respiratory distress at present time HEENT: Head is atraumatic and normocephalic. Eyes: EOMI. There is no scleral icterus. Mouth: Mucosa is moist. Neck: Supple and nontender. There is no thyromegaly or adenopathy noted. Heart: Regular without murmurs gallops or ectopics Lungs: No wheezes or crackles are heard. Abdomen: She has a large abdomen. It is nontender to palpation. Extremities: There is no cyanosis edema or clubbing noted. Dorsalis pedis and posterior tibial pulses are trace palpable bilaterally. Neurologic: Mental status: She is talkative and a good historian. Cranial nerves: Smile is symmetric. Forehead wrinkles bilaterally. Tongue protrudes midline. EOMI. Motor: There is no pronator drift. Cerebellar: Finger to nose is intact bilaterally. Skin: Warm and dry Internal Med - H&P Results - Labs CBC & Chem 7: 07/06/18 23:24 07/06/18 23:24 Labs: Short CBC 07/06/18 Range/Units 23:24 WBC 7.1 (4.3-11.1) K/mcL Hgb 11.0 L (11.5-15.4) g/dL Hct 35.3 (35.3-44.9) % Plt Count 182 (140-400) K/mcL Neutrophils # 4.8 (1.6-8.9) K/mcL BMP 07/06/18 23:24 Sodium 143 Potassium 3.4 L Chloride 105 Carbon Dioxide 31 H BUN 15 Creatinine 0.83 Glucose 297 H Calcium 8.4 L Cardiac Enzymes 07/06/18 Range/Units 23:24 Troponin I < 0.03 (< 0.04) ng/mL - ABG Interpretation ABG results: 07/07/18 00:50 ABG pH 7.36 ABG pCO2 57 H ABG pO2 68 L ABG HCO3 33 H ABG Total CO2 34 H ABG O2 Saturation 92 L ABG Base Excess 6 H - Impressions ITS Impressions Chest X-Ray 07/06/18 23:03 IMPRESSION: Limited but grossly negative portable chest. D/ / Kamari Lovelace MD / Kamari Lovelace MD Interpreting Provider: Kamari Lovelace MD
--- NOTE | 2018-07-07 12:30 | Discharge Summary ---
Date of Encounter: 07/07/18 Time of Encounter: 11:45 - Discharge Diagnosis (1) COPD (chronic obstructive pulmonary disease) Priority: Primary Status: Chronic Qualifiers: COPD type: COPD with acute exacerbation Qualified Code(s): J44.1 - Chronic obstructive pulmonary disease with (acute) exacerbation (2) HTN (hypertension) Priority: Secondary Status: Chronic Qualifiers: Hypertension type: essential hypertension Qualified Code(s): I10 - Essential (primary) hypertension (3) Hypokalemia Priority: Secondary Status: Acute Hospital course: Ms. Wood is a 53 year old female who came to emergency room stating she had increased dyspnea after lying down in bed last night. She reports she has had a cough for approximately 2 weeks that has not significantly improved. It is generally nonproductive. When her dyspnea did not improve she decided to come to emergency room. She was evaluated and was felt to have exacerbation of COPD. She was admitted to [facility] floor for ongoing care needs. Initial orders were written by the emergency room physician. I saw her on July 07 and performed a history physical and discharge. When I saw her she stated her breathing was improved and she felt near her baseline and wished to be discharged home. She will continue with antibiotic and probiotic with prednisone for 3 days at discharge. I encouraged her to discontinue smoking. I encouraged her to discuss with her PCP about obtaining a pulse oximeter at home to monitor oxygen saturation. I encouraged her also to discuss with her PCP restarting CPAP/BiPAP and that she would possibly need a repeat sleep study for qualification. Supplemental potassium will be given prior to discharge and she will continue with a prescription at home. Her PCP can monitor labs. She will be discharged home and follow with her PCP Bruce Mi CNP within 1 week. - Time Spent with Patient Total time spent providing and/or coordinating discharge services: - Discharge Medications Prescriptions: Cefuroxime PO [Ceftin] 500 mg PO Q12HR #6 tablet Azithromycin [Zithromax] 250 mg PO DAILY #3 tablet Lactobacillus [Culturelle] 1 each PO BID #6 cap.sprink Potassium Chloride 10 meq PO DAILY #30 tab.er.prt predniSONE [PredniSONE] 10 mg PO BIDWM #6 tablet Home Medications: Perphenazine [Trilafon] 8 mg PO DAILY 02/18/15 [History] Alprazolam [Xanax] 2 mg PO TID PRN 10/26/17 [History] Insulin ASPART [NovoLOG] 20 unit SQ TIDWM 04/05/17 [History] carBAMazepine [Carbamazepine ER] 200 mg PO TID 04/05/17 [History] Furosemide [Lasix] 40 mg PO DAILY 11/29/17 [History] Simvastatin [Zocor] 40 mg PO HS 11/29/17 [History] glyBURIDE [GlyBURIDE] 5 mg PO QAM 11/29/17 [History] hydrOXYzine pamoate [HydrOXYzine Pamoate] 200 mg PO HS PRN 11/29/17 [History] Benztropine Mesylate 2 mg PO BID 02/13/18 [History] Ipratropium/Albuterol Sulfate 3 ml PO QID 02/13/18 [History] Lantus 70 units SQ BID 02/13/18 [History] OXcarbazepine 600 mg PO BID 02/13/18 [History] Omeprazole 20 mg PO DAILY 02/13/18 [History] Vitamin E 400 unit PO DAILY 02/13/18 [History] Oxygen 3 l IH HS 07/06/18 [History] Azithromycin [Zithromax] 250 mg PO DAILY #3 tablet 07/07/18 [Rx] Cefuroxime PO [Ceftin] 500 mg PO Q12HR #6 tablet 07/07/18 [Rx] Lactobacillus [Culturelle] 1 each PO BID #6 cap.sprink 07/07/18 [Rx] Losartan/HCTZ [Hyzaar 50-12.5 Tablet] 1 each PO DAILY 07/07/18 [History] Potassium Chloride 10 meq PO DAILY #30 tab.er.prt 07/07/18 [Rx] predniSONE [PredniSONE] 10 mg PO BIDWM #6 tablet 07/07/18 [Rx] Allergies/Adverse Reactions: Allergy/AdvReac Type Severity Reaction Status Date / Time codeine Allergy See Verified 07/06/18 22:48 Comments fish oil Allergy Hives Verified 07/06/18 22:48 quetiapine [From Seroquel] Allergy Hives Verified 07/06/18 22:48 metformin AdvReac Diarrhea Verified 07/06/18 22:48 Date of admission: 07/07/18 01:44 Primary care physician: Bruce Mi CNP - Constitutional Vitals: Temp Pulse Resp BP Pulse Ox 97.6 F 97 18 126/82 93 07/07/18 11:20 07/07/18 11:20 07/07/18 11:20 07/07/18 11:20 07/07/18 11:20 - Patient Status Disposition: Home, Self-Care Condition: Fair - Discharge Instructions Follow Up With: Bruce Mi [employer]UFACTURING ENGINE[employer] [Primary Care Provider] - 1 week - Diet and Activity Activity: resume usual activities as tolerated, wear oxygen at night Diet: diabetic diet
--- NOTE | 2018-07-07 15:53 | Electrocardiograph Report ---
[place] [id number] Test Date: 2018-07-06 Pat Name: John Wood Department: EDP-14 Room: [facility] Gender: F Kennel Attendant: : 1965 Requested By: Real Cam Order Number: [id number] Reading MD: Willem Erickson Measurements Intervals [place] Rate: 84 P: 57 [place]: 159 QRS: 88 QRSD: 82 T: 9 QT: 463 QTc: 548 Interpretive Statements Sinus rhythm Low voltage, precordial leads RSR' in V1 or V2, right VCD or RVH Borderline abnrm T, anterolateral leads Prolonged QT interval Electronically Signed On 07-07-2018 15:51:51 EST by Willem Erickson
[2018-07-08] MEDS ORDERED: SODIUM CHLORIDE MINI 0.9% IVPB SCH (02:00)
[2018-07-08] MEDS ORDERED: CEFTRIAXONE IVPB SCH (02:00)
[2018-07-08] MEDS ORDERED: Azithromycin 500 MG in D5% in Water 250 ML IVPB SCH (04:00)
== END 2018-07-07 13:20 | disposition home or self-care (01) ==
LOC: INPPIK 22:33 → EMEROOPIK 22:33 → INPPIK 07-07 01:58
PROVIDERS: ADMIT Internal Medicine; ATTEND Internal Medicine

== ENCOUNTER 2018-07-09 11:59 | Inpatient (IN) ==
[2018-07-09] MEDS ORDERED: Ipratropium/Albuterol Neb 3 ML IH ONE (12:05)
--- NOTE | 2018-07-09 12:07 | Emergency Department Note ---
Disposition Clinical Impression: Acute exacerbation of chronic obstructive airways disease Disposition: Admitted As Inpatient Condition: Fair Referrals: NONE,PCP [Primary Care Provider] - Forms: ED Satisfaction Letter SOB HPI - General Chief Complaint: ED Shortness of Breath/Dyspnea Stated Complaint: Difficulty breathing and wheezing Time Seen by Provider: 07/09/18 12:04 Source: patient, EMS Mode of arrival: EMS Limitations: no limitations Nursing Notes Reviewed: Yes Vital Signs Reviewed: Yes - History of Present Illness Patient presents to the ED via EMS with difficulty breathing. States she has been short of breath for 3 days. Per EMS patient had an oxygen saturation of 79% on room air on their arrival. They gave a nebulizer treatment which improved her saturations into the low 90s during treatment. They also gave a dose of Solu-Medrol en route to the ED. Patient has a history of COPD and states she has been on home oxygen at 3 L/m for 5 years. She continues to smoke a pack per day for over 12 years. States she is not been using her home inhalers and breathing treatments because they give her headache. Review of records shows that she was just admitted here July 06 for a COPD exacerbation and was discharged with 3 days of Ceftin, Zithromax and prednisone. She states she has been taking these however patient was back in this ER approximately 10 hours ago with shortness of breath because she was reportedly out of oxygen tubing at home. She was apparently satting in the 80s at that time, was placed on oxygen and improved. No further tests were done and patient was discharged home. EMS states she was wearing oxygen at 4 L/m with an extensive amount of tubing in place on their arrival today. Patient denies any fever or chills. - Related Data Home Medications Medication Instructions Recorded Confirmed Perphenazine [Trilafon] 8 mg PO DAILY 02/18/15 07/09/18 Alprazolam [Xanax] 2 mg PO TID PRN 04/05/17 07/09/18 Insulin ASPART [NovoLOG] 20 unit SQ TIDWM 04/05/17 07/09/18 carBAMazepine [Carbamazepine ER] 200 mg PO TID 04/05/17 07/09/18 Furosemide [Lasix] 40 mg PO DAILY 11/29/17 07/09/18 Simvastatin [Zocor] 40 mg PO HS 11/29/17 07/09/18 glyBURIDE [GlyBURIDE] 5 mg PO QAM 11/29/17 07/09/18 hydrOXYzine pamoate [HydrOXYzine 200 mg PO HS PRN 11/29/17 07/09/18 Pamoate] Benztropine Mesylate 2 mg PO BID 02/13/18 07/09/18 Ipratropium/Albuterol Sulfate 3 ml PO QID 02/13/18 07/09/18 Lantus 70 units SQ BID 02/13/18 07/09/18 OXcarbazepine 600 mg PO BID 02/13/18 07/09/18 Omeprazole 20 mg PO DAILY 02/13/18 07/09/18 Vitamin E 400 unit PO DAILY 02/13/18 07/09/18 Oxygen 3 l IH HS 07/06/18 07/09/18 Losartan/HCTZ [Hyzaar 50-12.5 1 each PO DAILY 07/07/18 07/09/18 Tablet] Previous Rx's Medication Instructions Recorded Azithromycin [Zithromax] 250 mg PO DAILY #3 tablet 07/07/18 Cefuroxime PO [Ceftin] 500 mg PO Q12HR #6 tablet 07/07/18 Lactobacillus [Culturelle] 1 each PO BID #6 cap.sprink 07/07/18 Potassium Chloride 10 meq PO DAILY #30 tab.er.prt 07/07/18 predniSONE [PredniSONE] 10 mg PO BIDWM #6 tablet 07/07/18 Allergies Allergy/AdvReac Type Severity Reaction Status Date / Time codeine Allergy See Verified 07/06/18 22:48 Comments fish oil Allergy Hives Verified 07/06/18 22:48 quetiapine [From Seroquel] Allergy Hives Verified 07/06/18 22:48 metformin AdvReac Diarrhea Verified 07/06/18 22:48 Constitutional: Denies: fever, chills, weakness, weight change Eyes: Denies: eye pain, eye discharge, vision change ENT ED: Denies: ear pain, throat pain, dental pain, hearing loss, epistaxis, congestion, dysphagia Cardiovascular: Denies: chest pain, palpitations, dyspnea on exertion, edema, syncope Respiratory: Reports: cough, dyspnea, wheezes. Denies: hemoptysis, stridor Gastrointestinal: Denies: abdominal pain, nausea, vomiting, diarrhea, constipation, hematemesis, melena, hematochezia Genitourinary: Denies: dysuria, frequency, hematuria, discharge Musculoskeletal: Denies: back pain, neck pain, arthralgia, myalgia Integumentary: Denies: rash, abrasion, lesions Neurological: Denies: headache, weakness, numbness, paresthesias, confusion, abnormal gait, vertigo Psychiatric: Denies: anxiety, depression, suicidal thoughts, homicidal thoughts, auditory hallucinations, visual hallucinations Endocrine: Denies: fatigue Hematological/Lymphatic: Denies: easy bleeding, easy bruising Allergic/Immunologic: Denies: facial swelling, urticaria Past Medical History - Past Medical History Medical history: Reports: asthma, CHF, COPD, diabetes, GERD, hepatitis, hyperlipidemia, hypertension, pulmonary embolus, TIA, other Surgical history: Reports: , cholecystectomy, hysterectomy, orthopedic, other, other Psychiatric history: Reports: anxiety, bipolar, depression, PTSD, prior suicide attempt, schizophrenia, previous psychiatric hospitalization DESKTOP SUPPORT CONSULTANT history: Reports: no DESKTOP SUPPORT CONSULTANT history - Social History Smoking Status: Current every day smoker Smokeless Tobacco Status: No Alcohol use: Reports: none Drug use: Reports: none Physical Exam - General Limitations: no limitations General appearance: alert, anxious, obese (morbidly), other (hyperventilating) - Head Head exam: atraumatic, normocephalic, normal inspection - Eye Eye exam: Present: normal appearance, PERRL, EOMI - ENT ENT exam: normal exam, normal oropharynx, mucous membranes moist - Neck Neck exam: Present: normal inspection, full ROM, trachea midline - Chest Chest inspection: Present: normal inspection, symmetric chest wall rise - Respiratory Respiratory exam: Present: wheezes, other (hyperventilating) - Cardiovascular Cardiovascular exam: Present: regular rate, normal rhythm, normal heart sounds - Abdominal Exam Abdominal exam: Present: soft, Non-Tender. Absent: tenderness, distention, guarding, rebound, rigidity - Extremities Exam Extremities exam: Present: normal inspection, full ROM. Absent: tenderness, pedal edema - Neurological Exam Neurological exam: Present: alert, oriented X3 - Psychiatric Psychiatric exam: Present: normal affect, normal mood - Skin Skin exam: Present: warm, dry, intact, normal color Course Course Narrative: Patient presents to the ED complaining of 3 days of difficulty breathing. She was recently discharged after COPD exacerbation and has been noncompliant with home medication and oxygen and continues to smoke. On arrival she is anxious and hyperventilating with audible wheezing and rhonchi and oxygen saturations in the 80s. We will give an additional breathing treatment, obtain ABG, lab work and chest x-ray and start BiPAP. I suspect likely a recurrent COPD exacerbation but will also evaluate for pneumonia. - Reevaluation(s) Reevaluation #1: ABG shows a pH 7.23, PCO2 of 87 and PO2 of 43 which is significantly worse than when she was admitted 3 days ago. Will start BiPAP. Time: 12:39 Reevaluation #2: Repeat ABG after an hour BiPAP shows significant improvement in PO2 although PCO2 is still elevated and pH is still low at 7.23. Patient looks and reports feeling much better with significantly decreased work of breathing and is calm and speaking in full sentences with no anxiety. Discussed all results with patient including chest x-ray does not show any obvious pneumonia. I suspect her symptoms are due to COPD exacerbation due to medication and lifestyle noncompliance. Discussed with patient the need for admission and she is in agreement. I spoke to the hospitalist on-call, Dr. Obrien, who has agreed to accept the patient. We will give a dose of IV antibiotics per hospitalist request and make admission arrangements. Time: 14:24 Vital Signs O2 Sat by Pulse Oximetry 83 07/09/18 12:00 Temperature 97.2 F L 07/09/18 12:03 Pulse Rate 87 07/09/18 14:00 Respiratory Rate 20 07/09/18 14:00 Blood Pressure 147/106 07/09/18 14:00 O2 Sat by Pulse Oximetry 96 07/09/18 14:00 Oxygen Delivery Oxygen Delivery Bipap Shortness of Breath/Dyspnea - Differential Diagnosis Likely: acute exacerbation of chronic obstructive airways disease, pneumonia - Medical Records Medical records reviewed: Yes I reviewed the patient's medical records. - Lab Data Lab results reviewed: Yes I reviewed the patient's lab results. Result diagrams: 07/09/18 12:30 07/09/18 12:30 Lab Results 07/09/18 07/09/18 07/09/18 Range/Units 12:30 12:30 12:31 WBC 9.9 (4.3-11.1) K/mcL RBC 4.65 (3.82-4.97) M/mcL Hgb 12.0 (11.5-15.4) g/dL Hct 40.0 (35.3-44.9) % MCV 86.0 (83.0-100.0) fL MCH 25.8 L (28.0-33.3) pg MCHC 30.0 L (31.6-35.5) g/dL RDW 15.5 H (11.5-14.5) % Plt Count 226 (140-400) K/mcL MPV 9.7 (9.4-12.4) fL Immature Gran % 2.1 (0-4) % Seg Neutrophils % 76.0 % Lymphocytes % 12.7 % Monocytes % 8.5 % Eosinophils % 0.1 % Basophils % 0.6 % Neutrophils # 7.5 (1.6-8.9) K/mcL Lymphocytes # 1.3 (0.6-4.6) K/mcL Monocytes # 0.8 (0.0-1.3) K/mcL Eosinophils # 0.0 (0.0-0.6) K/mcL Basophils # 0.1 (0.0-0.2) K/mcL Nucleated RBCs/100 WBC 0.3 H (0) /100 WBC Sample Site R Brach ABG pH 7.23 L (7.32-7.45) pH Units ABG pCO2 87 H* (35-45) mmHg ABG pO2 43 L* (85-104) mmHg ABG HCO3 37 H (21-27) mEq/L ABG Total CO2 39 H (20-26) mEq/L ABG O2 Saturation 66 L (95-98) % ABG Base Excess 6 H (-2 to 3) mEq/L Jose Test N/A Respiration Rate O2 Delivery Device Cannula Inspired O2 3.0 (1-15=lpm [id number]=%) Sodium 139 (136-145) mEq/L Potassium 5.2 H (3.5-5.1) mEq/L Chloride 100 (98-107) mEq/L Carbon Dioxide 36 H (23-29) mEq/L BUN 20 (6-20) mg/dL Creatinine 0.67 (0.60-1.20) mg/dL Est GFR ( Amer) > 60 (> 60) Est GFR (Non-Af Amer) > 60 (> 60) BUN/Creatinine Ratio 30 H (6-26) Glucose 347 H (70-105) mg/dL Calculated Osmolality 304 H (280-300) Calcium 8.8 (8.6-10.3) mg/dL B-Natriuretic Peptide (Less than 100) pg/mL Person Notif of Tono espinal 07/09/18 07/09/18 Range/Units 12:45 14:12 WBC (4.3-11.1) K/mcL RBC (3.82-4.97) M/mcL Hgb (11.5-15.4) g/dL Hct (35.3-44.9) % MCV (83.0-100.0) fL MCH (28.0-33.3) pg MCHC (31.6-35.5) g/dL RDW (11.5-14.5) % Plt Count (140-400) K/mcL MPV (9.4-12.4) fL Immature Gran % (0-4) % Seg Neutrophils % % Lymphocytes % % Monocytes % % Eosinophils % % Basophils % % Neutrophils # (1.6-8.9) K/mcL Lymphocytes # (0.6-4.6) K/mcL Monocytes # (0.0-1.3) K/mcL Eosinophils # (0.0-0.6) K/mcL Basophils # (0.0-0.2) K/mcL Nucleated RBCs/100 WBC (0) /100 WBC Sample Site R Brach ABG pH 7.23 L (7.32-7.45) pH Units ABG pCO2 88 H* (35-45) mmHg ABG pO2 118 H D (85-104) mmHg ABG HCO3 37 H (21-27) mEq/L ABG Total CO2 40 H (20-26) mEq/L ABG O2 Saturation 97 (95-98) % ABG Base Excess 6 H (-2 to 3) mEq/L Jose Test N/A Respiration Rate 12 O2 Delivery Device BiPAP Inspired O2 70.0 (1-15=lpm [id number]=%) Sodium (136-145) mEq/L Potassium (3.5-5.1) mEq/L Chloride (98-107) mEq/L Carbon Dioxide (23-29) mEq/L BUN (6-20) mg/dL Creatinine (0.60-1.20) mg/dL Est GFR ( Amer) (> 60) Est GFR (Non-Af Amer) (> 60) BUN/Creatinine Ratio (6-26) Glucose (70-105) mg/dL Calculated Osmolality (280-300) Calcium (8.6-10.3) mg/dL B-Natriuretic Peptide 156 H (Less than 100) pg/mL Person Notif of Tono espinal - Radiology Data Radiology results reviewed: Yes I reviewed the patient's radiology results. ITS Impressions Chest X-Ray 07/09/18 12:10 IMPRESSION: Cardiomegaly. Mild findings suggesting pulmonary venous hypertension without overt congestive heart failure change. Follow-up full inspiration PA and lateral chest may be useful for better characterization of pulmonary findings. D/ / Jamin Aparicio / Jamin Aparicio Interpreting Provider: Jamin Aparicio
[2018-07-09 12:36] LABS: ABG Base Excess 6 mEq/L (-2 to 3); ABG HCO3 37 mEq/L (21-27); ABG Oxygen Saturation 66 % (95-98); ABG PCO2 87 mmHg (35-45); ABG PH 7.23 pH Units (7.32-7.45); ABG PO2 43 mmHg (85-104); ABG TCO2 39 mEq/L (20-26)
[2018-07-09 12:37] LABS: Basophils # 0.1 K/mcL (0.0-0.2); Basophils % 0.6 %; Eosinophils % 0.1 %; Immature Granulocytes % 2.1 % (0-4); Lymphocytes # 1.3 K/mcL (0.6-4.6); Lymphocytes % 12.7 %; Mean Corpuscular Hemoglobin 25.8 pg (28.0-33.3); Mean Platelet Volume 9.7 fL (9.4-12.4); Monocytes # 0.8 K/mcL (0.0-1.3); Monocytes % 8.5 %; Neutrophils # 7.5 K/mcL (1.6-8.9); Nucleated Red Blood Cells 0.3 /100 WBC (0); Platelet Count 226 K/mcL (140-400); Red Blood Count 4.65 M/mcL (3.82-4.97); Red Cell Distribution Width 15.5 % (11.5-14.5)
[2018-07-09 12:59] LABS: BUN/Creatinine Ratio 30 (6-26); Blood Urea Nitrogen 20 mg/dL (6-20); Calcium 8.8 mg/dL (8.6-10.3); Carbon Dioxide 36 mEq/L (23-29); Chloride 100 mEq/L (98-107); Glucose 347 mg/dL (70-105); Osmolality,Calculated 304 (280-300); Potassium 5.2 mEq/L (3.5-5.1); Sodium 139 mEq/L (136-145); eGFR For Non-African Americans > 60 (> 60)
[2018-07-09 14:18] LABS: ABG Base Excess 6 mEq/L (-2 to 3); ABG HCO3 37 mEq/L (21-27); ABG Oxygen Saturation 97 % (95-98); ABG PCO2 88 mmHg (35-45); ABG PH 7.23 pH Units (7.32-7.45); ABG PO2 118 mmHg (85-104); ABG TCO2 40 mEq/L (20-26); Blood Gas Respiration Rate 12
[2018-07-09] MEDS ORDERED: Azithromycin 500 MG in D5% in Water 250 ML IVPB ONE (14:23)
[2018-07-09] MEDS ORDERED: Naloxone 0.4 MG/ML INJ IVP PRN ×2 (14:30→15:21)
[2018-07-09] MEDS ORDERED: CARBAMAZEPINE 200 MG PO SCH (15:21)
[2018-07-09] MEDS ORDERED: hydrOXYzine pamoate 25 MG CAPSULE PO PRN (15:21)
[2018-07-09] MEDS: Ipratropium/Albuterol Neb 3 ML AER SCH ×2 (16:45→23:40)
[2018-07-09] MEDS ORDERED: *HR* Dextrose 50 % in Water (Syg) 50 ML SYRINGE IVP PRN (16:56)
[2018-07-09] MEDS ORDERED: D5% in Water 1,000 ML IVC PRN (16:56)
[2018-07-09] MEDS ORDERED: Dextrose Gel 15 GM/37.5 ML TUBE PO PRN ×2 (16:56)
[2018-07-09] MEDS ORDERED: Insulin LISPRO 300 UNITS/3 ML VIAL SQ SCH (17:00)
[2018-07-09] MEDS: Insulin LISPRO 300 UNITS/3 ML VIAL SQ SCH ×2 (17:46→20:07)
[2018-07-09] MEDS ORDERED: Furosemide 40 MG/4 ML VIAL IVP ONE (18:32)
--- NOTE | 2018-07-09 18:39 | Internal Med History&Physical ---
Date of Encounter: 07/09/18 Time of Encounter: 18:20 Assessment and Plan (1) Acute exacerbation of chronic obstructive airways disease Current visit: Yes Status: Acute She appears to have asthma component. IV steroids have been started along with antibiotics. She will continue BiPAP. Repeat ABG will be done in a.m. (2) CHF (congestive heart failure) Current visit: No Status: Chronic Continue Hyzaar and Lasix. Qualifiers: Heart failure type: diastolic Heart failure chronicity: chronic Qualified Code(s): I50.32 - Chronic diastolic (congestive) heart failure (3) HTN (hypertension) Current visit: No Status: Chronic Continue Hyzaar and Lasix. Qualifiers: Hypertension type: essential hypertension Qualified Code(s): I10 - Essential (primary) hypertension (4) Bronchitis Current visit: No Status: Acute Treatment as per above (5) Diabetes Current visit: No Status: Chronic Continue glyburide and Levemir with Accu-Cheks and SSI. Qualifiers: Diabetes mellitus type: type 2 Diabetes mellitus group home insulin use: unspecified predatory animal exterminator insulin use status Diabetes mellitus complication status: without complication Qualified Code(s): E11.9 - Type 2 diabetes mellitus without complications Internal Medicine - H&P: HPI Chief complaint: Dyspnea Admitted From: Emergency Dept Plans for Post Hospital Care: Home History of present illness: Ms. Wood is a 53 year old female who came to emergency room stating she had dyspnea onset shortly after she arrived home from being discharged from [facility] x- ray July 05 stay for exacerbation of COPD. She states she took prescribed medications but found her oxygen concentrator hose missing did not use home oxygen. She now admits that was "stupid". She states she smoked only 2 cigarettes during her stay at home. When her dyspnea did not improve so she came to emergency room and was found to have acute respiratory insufficiency. She was placed on BiPAP and was admitted to [facility] floor for ongoing care needs. She states she feels diffuse myalgias and arthralgias. She has smoked since age 11 a total of 33 years. She has smoked up to 4 packs per day. She has not had PFTs but does have home oxygen which she uses occasionally when she feels dy spneic. She has been diagnosed with VIOLET and was prescribed CPAP. She discarded her machine after it malfunctioned and she reports the supplier would not repair it. Past Med Surg Social Fam HX - Past Medical History Medical history: asthma, CHF, COPD, diabetes, GERD, hepatitis, hyperlipidemia, hypertension, pulmonary embolus, TIA, other Additional medical history: Hx of gall stones. SLEEP APNEA. hep c. hep b. GASTRIC ULCER. DVT. GLAUCOMA. HOME O2. DYSPHAGIA Psychiatric history: anxiety, bipolar, depression, PTSD, prior suicide attempt, schizophrenia, previous psychiatric hospitalization - Past Surgical History Surgical History: , cholecystectomy, hysterectomy, orthopedic, other, other Additional surgical history: right foot surgery. partial hysterectomy - Social History Smoking Status: Current every day smoker Smokeless Tobacco Status: No Alcohol use: none Drug use: none - Family History Mother Family Member Ethnicity: Non- Living Status: Hx Family Cardiac Disorders: Yes ([place] x4, CAD) Father Family Member Ethnicity: Non- Living Status: Hx Family Cardiac Disorders: Yes Brother Family Member Ethnicity: Non- Living Status: Hx Family Cardiac Disorders: Yes Hx Family Cancer: Yes (Stomach, Prostate) Hx Family Neurologic Disorders: Yes (Seizures) Sister Family Member Ethnicity: Non- Living Status: Still Living Hx Family Cardiac Disorders: Yes (CAD) Hx Family Cancer: Yes (Uterine) Hx Family GI Disorders: Yes (Polyps in colon) Hx Family Endocrine Disorder: Yes (DM) Internal Medicine - H&P: Meds Perphenazine [Trilafon] 8 mg PO DAILY 02/18/15 [History] Alprazolam [Xanax] 2 mg PO TID PRN 04/05/17 [History] Insulin ASPART [NovoLOG] 20 unit SQ TIDWM 04/05/17 [History] carBAMazepine [Carbamazepine ER] 200 mg PO TID 04/05/17 [History] Furosemide [Lasix] 40 mg PO DAILY 11/29/17 [History] Simvastatin [Zocor] 40 mg PO HS 11/29/17 [History] glyBURIDE [GlyBURIDE] 5 mg PO QAM 11/29/17 [History] hydrOXYzine pamoate [HydrOXYzine Pamoate] 200 mg PO HS PRN 11/29/17 [History] Benztropine Mesylate 2 mg PO BID 02/13/18 [History] Ipratropium/Albuterol Sulfate 3 ml PO QID 02/13/18 [History] Lantus 70 units SQ BID 02/13/18 [History] OXcarbazepine 600 mg PO BID 02/13/18 [History] Omeprazole 20 mg PO DAILY 02/13/18 [History] Vitamin E 400 unit PO DAILY 02/13/18 [History] Oxygen 3 l IH HS 07/06/18 [History] Azithromycin [Zithromax] 250 mg PO DAILY #3 tablet 07/07/18 [Rx] Cefuroxime PO [Ceftin] 500 mg PO Q12HR #6 tablet 07/07/18 [Rx] Lactobacillus [Culturelle] 1 each PO BID #6 cap.sprink 07/07/18 [Rx] Losartan/HCTZ [Hyzaar 50-12.5 Tablet] 1 each PO DAILY 07/07/18 [History] Potassium Chloride 10 meq PO DAILY #30 tab.er.prt 07/07/18 [Rx] predniSONE [PredniSONE] 10 mg PO BIDWM #6 tablet 07/07/18 [Rx] Allergy/AdvReac Type Severity Reaction Status Date / Time codeine Allergy See Verified 07/06/18 22:48 Comments fish oil Allergy Hives Verified 07/06/18 22:48 quetiapine [From Seroquel] Allergy Hives Verified 07/06/18 22:48 metformin AdvReac Diarrhea Verified 07/06/18 22:48 All Systems PM: A 10-system review of systems was performed and is negative for pertinent findings except as documented above in the HPI. Review of systems: Review of systems from her June 2018 [facility] hospitalization a few days ago were reviewed and revised as below. Gen.: Her weight has increased from 138.091 kg on 03/03/2015 to 149.232 kg on admission now. Cardiovascular: She has hypertension. She denies [place] DVT or pulmonary embolus She claims a heart cath done May 2018 at [facility] was unremarkable and did not require further intervention. Echocardiogram 11/29/2017 showed LVEF of 60%. There was no significant valvular dysfunction. The interventricular septum and posterior wall thickness measurements were 1.09 and 1.00 cm respectively. E/A ratio was 1.1. Respiratory: As per history of present illness GI: She has been diagnosed with hepatitis B and hepatitis C. She reports receiving pegylated interferon for hep C approximately 2002. She has cirrhosis secondary to hepatitis. She denies disorders of her exocrine pancreas. She has had cholecystectomy. : She denies hematuria dysuria or kidney stones Neurologic: She denies large distribution strokes or seizures. She thinks she may have had a "small stroke" a few months ago when she fell out of bed and injured her right shoulder. Endocrine: She was diagnosed with DM 2 approximately 1999. She has hyperlipidemia but no known thyroid disease Hematology/oncology: She denies blood disorders cancers or anemia Psychiatric: She has anxiety, schizoaffective disorder, bipolar disorder, MRDD (mild), and PTSD Musk skeletal: She has DJD but no known gout or osteoporosis. She reports right rotator cuff surgery was done February 2018. - Constitutional Vitals: Temp Pulse Resp BP Pulse Ox 97.2 F L 89 30 126/50 97 07/09/18 12:03 07/09/18 14:31 07/09/18 16:46 07/09/18 14:31 07/09/18 18:34 Exam: Gen.: She is a well-developed obese female lying in bed who appears dyspneic. She is appropriate in conversation. HEENT: Head is atraumatic and normal cephalic. Eyes: EOMI. There is no scleral icterus. Mouth: Mucosa is moist. Neck: There is no thyromegaly or adenopathy noted. Lungs: She has prolonged expiratory phase and mild diffuse wheezing. No in spiratory crackles are heard. Abdomen: She has a large abdomen. It is nontender to palpation. Extremities: There is no cyanosis edema or clubbing noted. Dorsalis pedis and posttibial pulses are trace to 1+ palpable bilaterally. Neurologic: Mental status: She is talkative and a good historian. Cranial nerves: Smile is symmetric. Forehead wrinkles bilaterally. Tongue protrudes midline. EOMI. Motor: There is no pronator drift. Cerebellar: Finger to nose is intact bilaterally. Skin: Warm and dry Internal Med - H&P Results - Labs CBC & Chem 7: 07/09/18 12:30 07/09/18 12:30 Labs: Short CBC 07/09/18 Range/Units 12:30 WBC 9.9 (4.3-11.1) K/mcL Hgb 12.0 (11.5-15.4) g/dL Hct 40.0 (35.3-44.9) % Plt Count 226 (140-400) K/mcL Neutrophils # 7.5 (1.6-8.9) K/mcL BMP 07/09/18 12:30 Sodium 139 Potassium 5.2 H Chloride 100 Carbon Dioxide 36 H BUN 20 Creatinine 0.67 Glucose 347 H Calcium 8.8 - ABG Interpretation ABG results: 07/09/18 07/09/18 12:31 14:12 ABG pH 7.23 L 7.23 L ABG pCO2 87 H* 88 H* ABG pO2 43 L* 118 H D ABG HCO3 37 H 37 H ABG Total CO2 39 H 40 H ABG O2 Saturation 66 L 97 ABG Base Excess 6 H 6 H - Impressions ITS Impressions Chest X-Ray 07/09/18 12:10 IMPRESSION: Cardiomegaly. Mild findings suggesting pulmonary venous hypertension without overt congestive heart failure change. Follow-up full inspiration PA and lateral chest may be useful for better characterization of pulmonary findings. D/ / Jamin Aparicio / Jamin Aparicio Interpreting Provider: Jamin Aparicio - VTE Reasons for not Prescribing Prophylaxis: Treatment not Indicated - Low risk for VTE
[2018-07-09] MEDS: Insulin DETEMIR 100 UNIT/ML X5UNITS SQ SCH (20:06)
[2018-07-09] MEDS: methylPREDNISolone 125 MG/2 ML VIAL IVP SCH (20:06)
[2018-07-09] MEDS: OXcarbazepine 150 MG TABLET PO SCH (20:06)
[2018-07-09] MEDS: Levofloxacin 750 MG/150 ML 750 MG/150 ML BAG IVPB SCH (20:06)
[2018-07-09] MEDS: Lactobacillus 1 EACH CAP.SPRINK PO SCH (20:06)
[2018-07-09] MEDS ORDERED: NON-FORMULARY MEDICATION 1 EACH EACH (Oxygen [Oxygen] 3 L) IH SCH (21:00)
[2018-07-10] MEDS: methylPREDNISolone 125 MG/2 ML VIAL IVP SCH ×3 (02:09→16:52)
[2018-07-10 04:31] LABS: Basophils % 0.3 %; Hematocrit 37.6 % (35.3-44.9); Hemoglobin 11.3 g/dL (11.5-15.4); Immature Granulocytes % 1.7 % (0-4); Lymphocytes # 1.3 K/mcL (0.6-4.6); Mean Corpuscular HGB Conc 30.1 g/dL (31.6-35.5); Mean Corpuscular Hemoglobin 25.6 pg (28.0-33.3); Mean Corpuscular Volume 85.3 fL (83.0-100.0); Mean Platelet Volume 9.4 fL (9.4-12.4); Monocytes # 0.4 K/mcL (0.0-1.3); Monocytes % 6.1 %; Neutrophils # 4.1 K/mcL (1.6-8.9); Platelet Count 188 K/mcL (140-400); Red Blood Count 4.41 M/mcL (3.82-4.97); Red Cell Distribution Width 15.1 % (11.5-14.5); Segmented Neutrophils % 69.9 %
[2018-07-10 05:12] LABS: Alanine Aminotransferase 59 Units/L (7-52); Albumin 3.5 g/dL (3.5-5.7); Alkaline Phosphatase 101 Units/L (34-104); Aspartate Amino Transferase 36 Units/L (13-39); BUN/Creatinine Ratio 39 (6-26); Bilirubin,Total 0.5 mg/dL (0.3-1.0); Blood Urea Nitrogen 23 mg/dL (6-20); Calcium 8.8 mg/dL (8.6-10.3); Carbon Dioxide 40 mEq/L (23-29); Chloride 94 mEq/L (98-107); Globulin 3.4 g/dL (2.4-3.5); Glucose 263 mg/dL (70-105); Osmolality,Calculated 297 (280-300); Potassium 4.1 mEq/L (3.5-5.1); Sodium 137 mEq/L (136-145); Total Protein 6.9 g/dL (6.4-8.9); eGFR For Non-African Americans > 60 (> 60)
[2018-07-10] MEDS: Ipratropium/Albuterol Neb 3 ML AER SCH ×2 (05:33→09:32)
[2018-07-10 08:45] LABS: ABG Base Excess 14 mEq/L (-2 to 3); ABG HCO3 42 mEq/L (21-27); ABG Oxygen Saturation 99 % (95-98); ABG PCO2 69 mmHg (35-45); ABG PH 7.39 pH Units (7.32-7.45); ABG PO2 159 mmHg (85-104); ABG TCO2 44 mEq/L (20-26)
[2018-07-10] MEDS: Insulin LISPRO 300 UNITS/3 ML VIAL SQ SCH ×4 (09:07→22:05)
[2018-07-10] MEDS: Lactobacillus 1 EACH CAP.SPRINK PO SCH ×2 (09:08→22:04)
[2018-07-10] MEDS: OXcarbazepine 150 MG TABLET PO SCH ×2 (09:08→22:04)
[2018-07-10] MEDS: Perphenazine 2 MG TABLET PO SCH (09:08)
[2018-07-10] MEDS: ALPRAZolam 1 MG TABLET PO PRN ×2 (09:08→22:04)
[2018-07-10] MEDS: Insulin DETEMIR 100 UNIT/ML X5UNITS SQ SCH ×2 (09:09→22:04)
[2018-07-10] MEDS: *HR* GlyBURIDE 5 MG TABLET PO SCH (09:09)
[2018-07-10] MEDS: Furosemide 40 MG TABLET PO SCH (09:09)
[2018-07-10] MEDS: Losartan/HCTZ 50-12.5 TABLET PO SCH (09:21)
--- NOTE | 2018-07-10 10:07 | Internal Med Progress Note ---
Date of Encounter: 07/10/18 Time of Encounter: 10:00 - Assessment and plan (1) Acute exacerbation of chronic obstructive airways disease Current Visit: Yes Status: Acute Assessment and plan: July 10. ABG has normalized pH. Continue IV steroids and antibiotics with nebulizers. (2) CHF (congestive heart failure) Current Visit: No Status: Chronic Assessment and plan: July 10. Continue Hyzaar and Lasix. BN peptide has decreased slightly to 123. Qualifiers: Heart failure type: diastolic Heart failure chronicity: chronic Qualified Code(s): I50.32 - Chronic diastolic (congestive) heart failure (3) HTN (hypertension) Current Visit: No Status: Chronic Assessment and plan: July 10. Continue Hyzaar and Lasix. Qualifiers: Hypertension type: essential hypertension Qualified Code(s): I10 - Essential (primary) hypertension (4) Bronchitis Current Visit: No Status: Acute Assessment and plan: July 10. As above (5) Diabetes Current Visit: No Status: Chronic Assessment and plan: July 10. Continue glyburide and Levemir with Accu-Cheks and SSI. Qualifiers: Diabetes mellitus type: type 2 Diabetes mellitus terminal operations supervisor insulin use: u nspecified assisted insulin use status Diabetes mellitus complication status: without complication Qualified Code(s): E11.9 - Type 2 diabetes mellitus without complications - Subjective Interval history: July 10. She has no new complaints and feels better. - Constitutional Vitals: Temp Pulse Resp BP Pulse Ox 97.8 F 79 36 101/58 95 07/10/18 06:00 07/10/18 06:00 07/10/18 09:35 07/10/18 06:00 07/10/18 09:35 Exam: She is sitting on the side of bed wearing oxygen by nasal cannula. Prolonged expiratory phase with mild wheezing is still present but improved from yesterday. She is appropriate in conversation. I reviewed her medications and lab results. Internal Medicine: Result - Labs CBC & Chem 7: 07/10/18 04:14 07/10/18 04:14 Labs: Short CBC 07/09/18 07/10/18 Range/Units 12:30 04:14 WBC 9.9 5.9 (4.3-11.1) K/mcL Hgb 12.0 11.3 L (11.5-15.4) g/dL Hct 40.0 37.6 (35.3-44.9) % Plt Count 226 188 (140-400) K/mcL Neutrophils # 7.5 4.1 (1.6-8.9) K/mcL BMP 07/09/18 07/10/18 12:30 04:14 Sodium 139 137 Potassium 5.2 H 4.1 Chloride 100 94 L Carbon Dioxide 36 H 40 H* BUN 20 23 H Creatinine 0.67 0.59 L Glucose 347 H 263 H Calcium 8.8 8.8 Liver Function 07/10/18 Range/Units 04:14 Total Bilirubin 0.5 (0.3-1.0) mg/dL AST 36 (13-39) Units/L ALT 59 H (7-52) Units/L Alkaline Phosphatase 101 (34-104) Units/L Albumin 3.5 (3.5-5.7) g/dL - ABG Interpretation ABG results: ABG ABG pH 7.39 pH Units (7.32-7.45) 07/10/18 08:41 ABG pCO2 69 mmHg (35-45) H 07/10/18 08:41 ABG pO2 159 mmHg (85-104) H 07/10/18 08:41 ABG O2 Saturation 99 % (95-98) H 07/10/18 08:41 - Impressions Impressions Chest X-Ray 07/09/18 12:10 IMPRESSION: Cardiomegaly. Mild findings suggesting pulmonary venous hypertension without overt congestive heart failure change. Follow-up full inspiration PA and lateral chest may be useful for better characterization of pulmonary findings. D/ / Jamin Aparicio / Jamin Aparicio Interpreting Provider: Jamin Aparicio - VTE Reasons for not Prescribing Prophylaxis: Treatment not Indicated - Low risk for VTE Consult Discharge Plan - Plan Referrals: NONE,PCP [Primary Care Provider] - 1 week
[2018-07-10] MEDS ORDERED: Albuterol 2.5 MG/3 ML NEBULIZER IH PRN (10:08)
[2018-07-10] MEDS: Budesonide/Formoterol 160/4.5 1 PUFF INH IH SCH ×2 (10:27→21:40)
[2018-07-10] MEDS: Tiotropium 18 MCG inhalation IH SCH (10:27)
[2018-07-10] MEDS ORDERED: Permethrin Cream Rinse 60 ML LIQUID TP ONE (11:03)
[2018-07-10] MEDS: Levofloxacin 750 MG/150 ML 750 MG/150 ML BAG IVPB SCH (12:36)
[2018-07-11] MEDS: methylPREDNISolone 125 MG/2 ML VIAL IVP SCH ×2 (00:41→07:49)
[2018-07-11] MEDS: OXcarbazepine 150 MG TABLET PO SCH ×2 (07:47→20:44)
[2018-07-11] MEDS: Losartan/HCTZ 50-12.5 TABLET PO SCH (07:47)
[2018-07-11] MEDS: Lactobacillus 1 EACH CAP.SPRINK PO SCH ×2 (07:47→20:43)
[2018-07-11] MEDS: Furosemide 40 MG TABLET PO SCH (07:48)
[2018-07-11] MEDS: Insulin LISPRO 300 UNITS/3 ML VIAL SQ SCH ×4 (07:48→20:45)
[2018-07-11] MEDS: Acetaminophen 325 MG TABLET PO PRN ×2 (07:48→16:41)
[2018-07-11] MEDS: Perphenazine 2 MG TABLET PO SCH (07:48)
[2018-07-11] MEDS: *HR* GlyBURIDE 5 MG TABLET PO SCH (07:48)
[2018-07-11] MEDS: Levofloxacin 750 MG/150 ML 750 MG/150 ML BAG IVPB SCH (09:27)
[2018-07-11] MEDS: Insulin DETEMIR 100 UNIT/ML X5UNITS SQ SCH ×2 (09:28→20:44)
[2018-07-11] MEDS: Tiotropium 18 MCG inhalation IH SCH (10:36)
[2018-07-11] MEDS: Budesonide/Formoterol 160/4.5 1 PUFF INH IH SCH ×2 (10:36→22:30)
--- NOTE | 2018-07-11 11:04 | Internal Med Progress Note ---
Date of Encounter: 07/11/18 Time of Encounter: 10:57 - Assessment and plan (1) Acute exacerbation of chronic obstructive airways disease Current Visit: Yes Status: Acute Assessment and plan: July 10. ABG has normalized pH. Continue IV steroids and antibiotics with nebulizers. July 11. Improved. Change to oral steroids. Continue antibiotics and nebulizers. Anticipate discharge home tomorrow if stable. (2) CHF (congestive heart failure) Current Visit: No Status: Chronic Assessment and plan: July 10. Continue Hyzaar and Lasix. BN peptide has decreased slightly to 123. Qualifiers: Heart failure type: diastolic Heart failure chronicity: chronic Qualified Code(s): I50.32 - Chronic diastolic (congestive) heart failure (3) HTN (hypertension) Current Visit: No Status: Chronic Assessment and plan: July 10. Continue Hyzaar and Lasix. Qualifiers: Hypertension type: essential hypertension Qualified Code(s): I10 - Essential (primary) hypertension (4) Bronchitis Current Visit: No Status: Acute Assessment and plan: July 10. As above (5) Diabetes Current Visit: No Status: Chronic Assessment and plan: July 10. Continue glyburide and Levemir with Accu-Cheks and SSI. July 11. Blood sugars are above desirable range. Discontinue Solu-Medrol and start prednisone. Qualifiers: Diabetes mellitus type: type 2 Diabetes mellitus ammunition specialist insulin use: unspecified group home insulin use status Diabetes mellitus complication status: without complication Qualified Code(s): E11.9 - Type 2 diabetes mellitus without complications - Subjective Interval history: July 10. She has no new complaints and feels better. July 11. She has no new complaints. - Constitutional Vitals: Temp Pulse Resp BP Pulse Ox 97.6 F 75 17 121/68 96 07/11/18 10:50 07/11/18 10:50 07/11/18 10:50 07/11/18 10:50 07/11/18 10:50 Exam: She is lying in bed wearing BiPAP. She is pleasant and attempts to talk wearing the BiPAP mask. Her lungs show no expiratory wheezing. I reviewed her medications and lab results. Internal Medicine: Result - Labs CBC & Chem 7: 07/10/18 04:14 07/10/18 04:14 - ABG Interpretation ABG results: ABG ABG pH 7.39 pH Units (7.32-7.45) 07/10/18 08:41 ABG pCO2 69 mmHg (35-45) H 07/10/18 08:41 ABG pO2 159 mmHg (85-104) H 07/10/18 08:41 ABG O2 Saturation 99 % (95-98) H 07/10/18 08:41 - VTE Reasons for not Prescribing Prophylaxis: Treatment not Indicated - Low risk for VTE Consult Discharge Plan - Plan Referrals: NONE,PCP [Primary Care Provider] - 1 week
[2018-07-11] MEDS: predniSONE 10 MG TABLET PO SCH (16:41)
[2018-07-11] MEDS: ALPRAZolam 1 MG TABLET PO PRN ×2 (16:41→22:39)
[2018-07-12] MEDS: Acetaminophen 325 MG TABLET PO PRN (05:48)
[2018-07-12] MEDS ORDERED: *HR* Enoxaparin 40 MG/0.4 ML SYRINGE SQ SCH (06:00)
[2018-07-12 06:53] VITALS: BP 118/67
[2018-07-12] MEDS: ALPRAZolam 1 MG TABLET PO PRN (09:48)
[2018-07-12] MEDS: Lactobacillus 1 EACH CAP.SPRINK PO SCH (09:48)
[2018-07-12] MEDS: predniSONE 10 MG TABLET PO SCH (09:49)
[2018-07-12] MEDS: Perphenazine 2 MG TABLET PO SCH (09:49)
[2018-07-12] MEDS: OXcarbazepine 150 MG TABLET PO SCH (09:49)
[2018-07-12] MEDS: Insulin DETEMIR 100 UNIT/ML X5UNITS SQ SCH (09:49)
[2018-07-12] MEDS: Insulin LISPRO 300 UNITS/3 ML VIAL SQ SCH (09:49)
[2018-07-12] MEDS: Furosemide 40 MG TABLET PO SCH (09:49)
[2018-07-12] MEDS: *HR* GlyBURIDE 5 MG TABLET PO SCH (09:49)
[2018-07-12] MEDS: Levofloxacin 750 MG/150 ML 750 MG/150 ML BAG IVPB SCH (09:50)
[2018-07-12] MEDS: Losartan/HCTZ 50-12.5 TABLET PO SCH (09:53)
--- NOTE | 2018-07-12 10:21 | Discharge Summary ---
Date of Encounter: 07/12/18 Time of Encounter: 10:05 - Discharge Diagnosis (1) Acute exacerbation of chronic obstructive airways disease Priority: Primary Status: Acute (2) VIOLET (obstructive sleep apnea) Priority: Secondary Status: Chronic (3) CHF (congestive heart failure) Priority: Secondary Status: Chronic Qualifiers: Heart failure type: diastolic Heart failure chronicity: chronic Qualified Code(s): I50.32 - Chronic diastolic (congestive) heart failure (4) HTN (hypertension) Priority: Secondary Status: Chronic Qualifiers: Hypertension type: essential hypertension Qualified Code(s): I10 - Essential (primary) hypertension (5) Bronchitis Priority: Secondary Status: Acute (6) Diabetes Priority: Secondary Status: Chronic Qualifiers: Diabetes mellitus type: type 2 Diabetes mellitus skilled nursing insulin use: unspecified skilled nursing insulin use status Diabetes mellitus complication stat us: without complication Qualified Code(s): E11.9 - Type 2 diabetes mellitus without complications Hospital course: Ms. Wood is a 53 year old female who came to emergency room stating she had dyspnea onset shortly after she arrived home from being discharged from [facility] x- ray July 05 stay for exacerbation of COPD. She states she took prescribed medications but found her oxygen concentrator hose missing so did not use home oxygen. She now admits that was "stupid". She states she smoked only 2 cigarettes during her stay at home. When her dyspnea did not improve so she came to emergency room and was found to have acute respiratory insufficiency. She was placed on BiPAP and was admitted to [facility] floor for ongoing care needs. Initial orders were written by the emergency room physician. I saw her on July 09 and performed a history and physical. She was started on IV steroids with antibiotics. BiPAP was used as needed to maintain adequate ventilation. Review of sleep study done at [facility] 03/23/2015 showed severe VIOLET. Titration at that time showed CPAP ineffective at maintaining satisfactory apnea/hypopnea index. BiPAP was required at settings of 15/10 cm with AHI decreasing to 2.5 at a 4% desaturation threshold. Oxygen testing the night of July 11 showed saturations decreasing to less than 89% for 12 consecutive minutes. She will be prescribed BiPAP at settings of 15/10 cm for home use. She will continue to use oxygen 24/7 at 2 L/m with portable gas and concentrator needed for diagnosis of COPD with hypoxemia not corrected by use of inhalers/nebulizers. I encouraged her to become a nonsmoker. She was started on IV steroids initially during hospitalization. She was later changed to oral prednisone and will continue this for 3 additional days at discharge. Additional antibiotics would not be given at this time. Wheezing completely resolved during hospital stay. I strongly encouraged her to become a nonsmoker. She was started on Symbicort and Spiriva during her hospital stay and these will be continued at discharge. She will be discharged home and follow with her PCP Bruce Mi CNP within 1 week. - Time Spent with Patient Total time spent providing and/or coordinating discharge services: - Discharge Medications Prescriptions: Budesonide/Formoterol 160/4.5 [Symbicort 160/4.5] 2 puff IH BIDR #1 inh predniSONE [PredniSONE] 10 mg PO BIDWM #6 tablet Tiotropium [Spiriva] 18 mcg IH DAILYR #30 inh Home Medications: Perphenazine [Trilafon] 8 mg PO DAILY 02/18/15 [History] Alprazolam [Xanax] 2 mg PO TID PRN 04/05/17 [History] Insulin ASPART [NovoLOG] 20 unit SQ TIDWM 04/05/17 [History] carBAMazepine [Carbamazepine ER] 200 mg PO TID 04/05/17 [History] Furosemide [Lasix] 40 mg PO DAILY 11/29/17 [History] Simvastatin [Zocor] 40 mg PO HS 11/29/17 [History] glyBURIDE [GlyBURIDE] 5 mg PO QAM 11/29/17 [History] hydrOXYzine pamoate [HydrOXYzine Pamoate] 200 mg PO HS PRN 11/29/17 [History] Benztropine Mesylate 2 mg PO BID 02/13/18 [History] Lantus 70 units SQ BID 02/13/18 [History] OXcarbazepine 600 mg PO BID 02/13/18 [History] Omeprazole 20 mg PO DAILY 02/13/18 [History] Vitamin E 400 unit PO DAILY 02/13/18 [History] Oxygen 3 l IH HS 07/06/18 [History] Losartan/HCTZ [Hyzaar 50-12.5 Tablet] 1 each PO DAILY 07/07/18 [History] Potassium Chloride 10 meq PO DAILY #30 tab.er.prt 07/07/18 [Rx] Budesonide/Formoterol 160/4.5 [Symbicort 160/4.5] 2 puff IH BIDR #1 inh 07/12/18 [Rx] Tiotropium [Spiriva] 18 mcg IH DAILYR #30 inh 07/12/18 [Rx] predniSONE [PredniSONE] 10 mg PO BIDWM #6 tablet 07/12/18 [Rx] Allergies/Adverse Reactions: Allergy/AdvReac Type Severity Reaction Status Date / Time codeine Allergy See Verified 07/06/18 22:48 Comments fish oil Allergy Hives Verified 07/06/18 22:48 quetiapine [From Seroquel] Allergy Hives Verified 07/06/18 22:48 metformin AdvReac Diarrhea Verified 07/06/18 22:48 Date of admission: 07/11/18 13:03 Primary care physician: Filippo Mi CNP - Constitutional Vitals: Temp Pulse Resp BP Pulse Ox 97.4 F L 78 20 118/67 93 07/12/18 06:51 07/12/18 06:51 07/12/18 06:51 07/12/18 06:51 07/12/18 06:51 - Patient Status Disposition: Home, Self-Care Condition: Fair - Discharge Instructions Follow Up With: Bruce Mi AGRISCIENCE INSTRUCTOR [Advanced Practice Nurse] - 1 week - Diet and Activity Activity: wear oxygen at all times, other (Wear BiPAP at bedtime at settings of 15/10 cm with additional use during daytime when necessary. Bleed in oxygen at 2 L/m while wearing BiPAP.) Diet: diabetic diet - VTE Reasons for not Prescribing Prophylaxis: Treatment not Indicated - Low risk for VTE
[2018-07-12] MEDS: Tiotropium 18 MCG inhalation IH SCH (10:31)
[2018-07-12] MEDS: Budesonide/Formoterol 160/4.5 1 PUFF INH IH SCH (10:32)
== END 2018-07-12 16:00 | disposition home or self-care (01) | DRG 191 ==
LOC: INPPIK 11:59 → EMEROOPIK 11:59 → INPPIK 14:51
PROVIDERS: ADMIT Internal Medicine; ATTEND Internal Medicine